=== PATIENT | female | born 1975 | race Caucasian/White ===

== ENCOUNTER 2016-04-29 08:10 | Day surgery (SDC) | payer OTHER ==
[~2016-04-29] VITALS: Ht 160 cm; Wt 99.5 kg
[2016-04-29 09:33] VITALS: Ht 160 cm; Wt 99.5 kg
[2016-04-29] MEDS ORDERED: INSULIN GLARGINE [LANtus] 3 ML PEN SC STA (10:02)
[2016-04-29 10:06] VITALS: BP 119/73; PULSE 97; RESP 20
[2016-04-29] MEDS ORDERED: LANT3I SC (10:11)
[2016-04-29] MEDS ORDERED: DEPRESSION (10:11)
[2016-04-29] MEDS ORDERED: INSU100V3 IJ (10:11)
[2016-04-29 10:26] LABS: POTASSIUM 4.3 mmol/L (3.5-5.1)
[2016-04-29 10:29] LABS: CREATININE 0.52 mg/dl (0.44-1.00)
[2016-04-29 10:30] LABS: CALCIUM 9.3 mg/dl (8.4-10.2)
--- NOTE | 2016-04-29 11:03 | EN ---
Date/Time of Note Date/Time of Note DATE: 04/29/16 TIME: 10:54 Event Note Anesthesiology Anesthesiology Event Note 41 yo F IDDM, morbidly obese presents for EGD for abdominal pain. FS Glc 450-> 420, confirmed Glucose 430 on chem 8, showing slightly high AG. Pt states she has not taken her lantus in several days and forgot. She denies n/v, thirst, increased urine production, abdominal pain, confusion. Her VS shows normotension , without tachycardia, no tenderness of abdomen on palpation. Patient was given 55U Lantus SC, her usual am dose. And decision was made to cancel case and come back for procedure once glucose normalizes and patient remains on her insulin regimen. Patient instructed to follow up with PMD for better follow-up of DM care and titration of insulin, given h/o hypoglycemia to 30s several years ago. Baseline range per pt is 100-200. Patient instructed to call 911 and go to ED should any of the symptoms for DKA develops. Advised patient that she should still go home with a learning support specialist, so that they may watch and care for her should she have a medical emergency. Patient refused to have niece come to pick her up and wants to go home on a bus. Informed and discussed at length and patient chose to sign AMA form. I suspect 100-200 is not her baseline, especially if she's noncompliant with her insulin and shows poor understanding of end organ damage from IDDM. MERARI GAMING MD Apr 29, 2016 11:03
[2016-04-29] MEDS ORDERED: GLUCOSE GEL 15 GRAM TUBE BUCCAL PRN (11:30)
[2016-04-29] MEDS ORDERED: GLUCOSE GEL 15 GRAM TUBE PO PRN ×2 (11:30)
[2016-04-29] MEDS ORDERED: GLUCAGON 1 MG INJ IM PRN (11:30)
[2016-04-29] MEDS ORDERED: DEXTROSE 50% 50 ML SYRINGE IV PRN ×2 (11:30)
== END 2016-04-30 08:30 | disposition home or self-care (01) ==
LOC: GIL 08:10
PROVIDERS: ATTEND Internal Medicine Gastroenterology
DX: R63.4 Abnormal weight loss (principal); Z53.9 Procedure and treatment not carried out, unspecified reason; E11.9 Type 2 diabetes mellitus without complications; F32.9 Major depressive disorder, single episode, unspecified
CPT/HCPCS: 80048; 82962; J1815

== ENCOUNTER 2016-06-03 06:42 | Day surgery (SDC) | payer OTHER ==
[~2016-06-03] VITALS: Ht 160 cm; Wt 107.0 kg
[~2016-06-03 06:42] MED LIST: DEPRESSION; INSU100V3 IJ; LANT3I SC
[2016-06-03 08:32] VITALS: Ht 160 cm; Wt 107.0 kg
[2016-06-03] MEDS ORDERED: MTF1000T PO (08:39)
[2016-06-03] MEDS ORDERED: FENTAnyl 50 MCG/ML VIAL ONE (08:51)
[2016-06-03] MEDS ORDERED: PROPOFOL 20 ML ONE (08:51)
[2016-06-03 10:10] VITALS: BP 150/89; PULSE 99; RESP 18
--- NOTE | 2016-06-03 11:20 | GILP ---
DATE OF PROCEDURE: PROCEDURE: Esophagogastroduodenoscopy with biopsy. INDICATION: A 41-year-old female undergoing this procedure for persistent epigastric pain and heart burn. The risk of the procedure, related and unrelated complications, anesthetic risks, alternative s discussed. Informed consent was obtained. DESCRIPTION OF PROCEDURE: The patient was brought to the GI lab, sedated by the anesthesiologist. After optimum sedation, scope was passed with much ease into esophagus. She had a 2 linear esophageal ulceration, biopsied one of them while coming out. Z line was at 35 c m. A 3 to 4 cm hiatal hernia. Stomach mucosa revealed gastritis. Random 4 biopsies obtained. Duo denum, first and second part including ampulla appeared normal. Retroversion done, no growth was se en. Scope was straightened out and removed with good patient tolerance. IMPRESSION 1. Two esophageal ulcerations, linear. Each one is about 1 cm in length. 2. A 3 to 4 cm hiatal hernia. 3. Gastritis. 4. Normal duodenum and ampulla. PLAN: Review histopathology, will get an MRCP done. The patient needs to followup in the office in 3 to 4 weeks. Dictated By: MISTY URIBE/ABNER Conf#: [id number] DID#: [id number]
== END 2016-06-03 11:00 | disposition home or self-care (01) ==
LOC: GIL 06:42
PROVIDERS: ATTEND Internal Medicine Gastroenterology
DX: K29.30 Chronic superficial gastritis without bleeding (principal); K21.0 Gastro-esophageal reflux disease with esophagitis; K44.9 Diaphragmatic hernia without obstruction or gangrene; K22.10 Ulcer of esophagus without bleeding; E11.9 Type 2 diabetes mellitus without complications; E66.9 Obesity, unspecified; Z68.41 Body mass index [BMI] 40.0-44.9, adult
CPT/HCPCS: 43239; 82962; 84703; 88305; 88312; 88313; J3010; Z7610

== ENCOUNTER 2017-01-17 18:01 | Inpatient (IN) | payer OTHER ==
[~2017-01-17] VITALS: Ht 162.6 cm; Wt 101.0 kg
[~2017-01-17 18:01] MED LIST changes: -DEPRESSION; +MTF1000T PO
[2017-01-17 18:35] VITALS: PULSE 112
[2017-01-17 20:00] VITALS: Ht 162.6 cm; Wt 101.0 kg
[2017-01-17 20:03] VITALS: BP 135/75; RESP 19
[2017-01-17 20:20] VITALS: PULSE 119
[2017-01-17] MEDS ORDERED: LORAZEPAM 2 MG INJ IM PRN (22:00)
[2017-01-17] MEDS ORDERED: ALBUTEROL/IPRATROPIUM (NEB) 3 ML AMP HHN PRN (22:00)
[2017-01-17] MEDS ORDERED: DEXTROSE 50% 50 ML SYRINGE IV PRN ×2 (23:15)
[2017-01-17] MEDS ORDERED: GLUCOSE GEL 15 GRAM TUBE BUCCAL PRN (23:15)
[2017-01-17] MEDS ORDERED: GLUCOSE GEL 15 GRAM TUBE PO PRN ×2 (23:15)
[2017-01-17] MEDS ORDERED: GLUCAGON 1 MG INJ IM PRN (23:15)
[2017-01-17 23:51] VITALS: BP 102/62; RESP 18
[2017-01-18] VITALS (10 sets, daily range): BP systolic 100–115; BP diastolic 52–60; PULSE 87–115; RESP 18–19
[2017-01-18] MEDS ORDERED: ACCU-CHEK XX SCH (02:00)
[2017-01-18] MEDS: ACCU-CHEK XX SCH (02:00)
[2017-01-18] MEDS: LORAZEPAM 2 MG INJ IV PRN (04:19)
[2017-01-18] MEDS: INSULIN ASPART [NOVOLOG] 3 ML PEN SC SCH ×4 (08:00→21:00)
[2017-01-18] MEDS: PAROXETINE 10 MG TAB PO SCH (08:34)
[2017-01-18 09:06] LABS: BASOPHILS % 0.3 % (0.0-2.0); HEMATOCRIT 30.6 % (37.0-47.0); HEMOGLOBIN 9.1 g/dl (12.0-16.0); LYMPHOCYTES # 2.2 10^3/ul (0.8-2.9); LYMPHOCYTES % 19.4 % (15.0-51.0); MEAN CORPUSCULAR HEMOGLOBIN 22.6 pg (29.0-33.0); MEAN CORPUSCULAR HGB CONC 29.7 g/dl (32.0-37.0); MEAN CORPUSCULAR VOLUME 76.1 fl (82.0-101.0); MEAN PLATELET VOLUME 10.3 fl (7.4-10.4); MONOCYTES % 9.1 % (0.0-11.0); NEUTROPHIL # 7.9 10^3/ul (1.6-7.5); PLATELET COUNT 223 10^3/UL (140-415); RED BLOOD COUNT 4.02 10^6/ul (4.20-5.40); RED CELL DISTRIBUTION WIDTH 17.8 % (11.5-14.5); WHITE BLOOD COUNT 11.5 10^3/ul (4.8-10.8)
[2017-01-18 09:21] LABS: CREATININE 4.5 mg/dl (0.44-1.00); POTASSIUM 3.9 mmol/L (3.5-5.1)
[2017-01-18] MEDS ORDERED: DEXTROSE 5%-0.45% NACL 1,000 ML IV SCH (10:00)
--- NOTE | 2017-01-18 13:37 | QN ---
Documentation Comment [id number] KATHY MARTINEZ MD Jan 18, 2017 13:37
[2017-01-18 13:51] LABS: HAAIG REFLEX REFLEX FILED
[2017-01-18 14:47] LABS: HEPATITIS B CORE ANTIBODY NEGATIVE (NEGATIVE)
[2017-01-18] MEDS: CEFTRIAXONE 1 GM/50 ML (PMX) 50 ML IVPB SCH (15:08)
[2017-01-18] MEDS ORDERED: INSULIN GLARGINE [LANtus] 3 ML PEN SC SCH (21:00)
[2017-01-19] VITALS (15 sets, daily range): BP systolic 99–149; BP diastolic 52–86; PULSE 80–113; RESP 17–19
[2017-01-19] MEDS: ACCU-CHEK XX SCH (02:18)
[2017-01-19] MEDS: LORAZEPAM 2 MG INJ IV PRN ×3 (02:51→15:50)
[2017-01-19] MEDS: PANTOPRAZOLE (EC) 40 MG TAB PO SCH (06:06)
[2017-01-19] MEDS ORDERED: ALTEPLASE (CATHFLO) 2 MG INJ CATHETER ONE (07:00)
--- NOTE | 2017-01-19 07:32 | HP ---
DATE OF ADMISSION: 01/17/2017 HISTORY OF PRESENT ILLNESS: Charmaine Rm is a 41-year-old female who was admitted to another hospital with diagnosis of diabetic ketoacidosis, , UTI, dehydration. The patient also developed acute kidney injury, started on hemodialysis. The patient was intubated and successfully extubated and transferred to [facility] for further management. The patient has underlying psychiatric disorder also. The patient has a history of hypertension. The patient was seen by endocrinology for diabetes mellitus. The patient was also diagnosed to have end-stage renal disease. Will continue hemodialysis. EKG done shows the patient has sinus tachycardia. The patient's creatinine 3.3 and sodium 141, potassium 4.6 on 01/14/2017, patient's pCO2 of 37 , pO2 of 77 on 01/14/2017. The patient has NG tube for feeding. Pulled on NG tube 2 times. CPK recorded as 216, triglyceride 509, alkaline phosphatase 386. Urine was positive for protein, 2+. The patient and family is at bedside who provided some history. The patient herself is unable to give any detailed history. PAST MEDICAL HISTORY: Positive for depression, psychiatric disorder, hypertension, diabetes mellitus, noncompliance. ALLERGY HISTORY: NEGATIVE. FAMILY HISTORY: Diabetes mellitus, hypertension. SOCIAL HISTORY: Negative. MEDICATION HISTORY: The patient does not know the name of the medicine she takes at home. CURRENT MEDICATIONS: The patient is on: 1. D5 half. 2. The patient has Accu-Chek. 3. Baclofen t.i.d. p.r.n. 4. Insulin, Lantus 60 units at bedtime. 5. Lorazepam. 6. Paxil. 7. Tramadol. REVIEW OF SYSTEMS HEENT: Anxiety. RESPIRATORY: Unremarkable. CARDIOVASCULAR: Unremarkable. ABDOMEN: No dyspepsia. EXTREMITIES: Denies any swelling. Patient has a groin catheter. PHYSICAL EXAMINATION: GENERAL: Obese, overweight female, awake, alert. VITAL SIGNS: Pulse 98, blood pressure 101/57. HEAD: Atraumatic, normocephalic. Pupils equal, reactive to light. NECK: Supple. There is no JVD. LUNGS: Clear. CARDIOVASCULAR: S1, S2 are normal. ABDOMEN: Soft, obese, bowel sounds present, no palpable mass or hepatosplenomegaly. No guarding, rebound tenderness. EXTREMITIES: There is no cyanosis, clubbing, or edema. CENTRAL NERVOUS SYSTEM: The patient is awake, alert with no focal deficit. LABORATORY DATA: Sodium 140, potassium 3.9, BUN 58, creatinine 4.50. 27.5, hematocrit 30.6, platelet count 223. IMPRESSION: 1. The patient is status post diabetic ketoacidosis, diabetes mellitus, hypertension, pneumonia, status post respiratory failure. The patient has ESRD , as per current chart. The patient has obesity, dyslipidemia, noncompliance, anxiety and depression. PLAN: Plan is to continue his current medication. The patient will have a swallow test. If she passes, she will be fed. The patient will also have laboratory data followed. Hemodialysis was ordered and antibiotics will be considered. Orders were done. Dictated By: KATHY UMANA/ABNER Conf#: [id number] DID#: [id number] MTDD
[2017-01-19 07:36] LABS: BASOPHILS % 0.5 % (0.0-2.0); HEMATOCRIT 26.5 % (37.0-47.0); HEMOGLOBIN 8.1 g/dl (12.0-16.0); LYMPHOCYTES # 1.3 10^3/ul (0.8-2.9); LYMPHOCYTES % 14.7 % (15.0-51.0); MEAN CORPUSCULAR HEMOGLOBIN 22.9 pg (29.0-33.0); MEAN CORPUSCULAR HGB CONC 30.6 g/dl (32.0-37.0); MEAN CORPUSCULAR VOLUME 74.9 fl (82.0-101.0); MEAN PLATELET VOLUME 10.1 fl (7.4-10.4); MONOCYTE # 0.7 10^3/ul (0.3-0.9); NEUTROPHIL # 6.7 10^3/ul (1.6-7.5); NEUTROPHILS % 75.4 % (39.0-77.0); PLATELET COUNT 209 10^3/UL (140-415); RED BLOOD COUNT 3.54 10^6/ul (4.20-5.40); RED CELL DISTRIBUTION WIDTH 17.1 % (11.5-14.5); WHITE BLOOD COUNT 8.9 10^3/ul (4.8-10.8)
[2017-01-19 07:51] LABS: ALBUMIN 3.5 g/dl (3.3-4.9); BILIRUBIN,INDIRECT 0.1 mg/dl (0-1.1); BILIRUBIN,TOTAL 0.1 mg/dl (0.2-1.3); CALCIUM 8.4 mg/dl (8.4-10.2); CREATININE 4.17 mg/dl (0.44-1.00); POTASSIUM 3.3 mmol/L (3.5-5.1)
[2017-01-19] MEDS: INSULIN ASPART [NOVOLOG] 3 ML PEN SC SCH ×4 (08:00→21:00)
[2017-01-19] MEDS: POLYETHYLENE GLYCOL 3350 119 GM POWDER PO SCH (08:23)
[2017-01-19] MEDS: PAROXETINE 10 MG TAB PO SCH (08:24)
[2017-01-19] MEDS: LUBIPROSTONE 24 MCG CAP PO SCH ×2 (08:24→21:00)
--- NOTE | 2017-01-19 08:36 | RADRPT ---
PROCEDURE: XR Chest. CLINICAL INDICATION: Shortness of breath. TECHNIQUE: Single frontal view. COMPARISON: None. FINDINGS: There is a left subclavian vein catheter with the tip in the superior vena cava. There is mild atele ctasis at the lung bases. The lungs are otherwise clear. The heart size is normal. There is no right pleural effusion. There is a probable small left pleural effusion. There is no pneumothorax. IMPRESSION: 1. Left subclavian vein catheter tip in the superior vena cava. 2. Mild atelectasis at the lung bases. 3. Probable small left pleural effusion. 4. Otherwise unremarkable chest radiograph. RPTAT: QQ .Joel Hutchison MD, MD Date Time Electronically viewed and signed by .Joel Hutchison MD, on 01/19/2017 08:36 .R/
[2017-01-19] MEDS ORDERED: QUETIAPINE 25 MG TAB PO ONE (12:00)
[2017-01-19 12:07] LABS: HAAIG REFLEX REFLEX FILED
[2017-01-19] MEDS: DEXTROSE 5%-0.45% NACL 1,000 ML IV SCH (12:19)
[2017-01-19 13:18] LABS: HEPATITIS B CORE ANTIBODY NEGATIVE (NEGATIVE)
[2017-01-19] MEDS: CEFTRIAXONE 1 GM/50 ML (PMX) 50 ML IVPB SCH (14:30)
[2017-01-19] MEDS: QUETIAPINE 25 MG TAB PO SCH (21:00)
[2017-01-19] MEDS ORDERED: INSULIN GLARGINE [LANtus] 3 ML PEN SC SCH (21:00)
--- NOTE | 2017-01-19 23:01 | PN ---
Date/Time of Note Date/Time of Note DATE: 01/19/17 TIME: 23:00 Assessment/Plan VTE Prophylaxis VTE Prophylaxis Intervention: other Lines/Catheters IV Catheter Type (from Nrs): boston w pigtail Urinary Cath still in place: Yes Reason Cath still needed: other (indicate) Assessment/Plan Chief Complaint/Hosp Course 1. The patient is status post diabetic ketoacidosis, diabetes mellitus, hypertension, pneumonia, status post respiratory failure. The patient has ESRD , as per current chart. The patient has obesity, dyslipidemia, noncompliance, anxiety and depression. plan hd psychic perma cath Problems: Subjective 24 Hr Interval Summary Subjective hx not possible: other (agitated ) Exam/Review of Systems Vital Signs Vitals Vital Signs Date Time Temp Pulse Resp B/P Pulse Ox O2 Delivery O2 Flow Rate FiO2 01/19/17 20:00 101 01/19/17 16:11 98.6 18 122/71 95 01/19/17 07:50 Nasal Cannula 2.0 01/18/17 04:33 30 Intake and Output 01/18/17 01/18/17 01/19/17 15:00 23:00 07:00 Intake Total 470 ml Output Total 500 ml Balance -30 ml Exam Neck: supple Respiratory: clear to auscultation Cardiovascular: regular rate and rhythm Gastrointestinal: bowel sounds, soft Extremities: normal pulses Results Result Diagram: 01/19/17 0629 01/19/17 0629 Results 24 hrs Laboratory Tests Test 01/19/17 02:07 01/19/17 02:34 01/19/17 02:49 01/19/17 03:47 Bedside Glucose 68 L 84 81 98 Test 01/19/17 06:28 01/19/17 06:29 01/19/17 08:01 01/19/17 08:19 Hemoglobin A1c 12.5 H Hepatitis B Surface Antigen NEGATIVE Hepatitis B Core Total Antibody NEGATIVE Hepatitis C Antibody NEGATIVE White Blood Count 8.9 # Red Blood Count 3.54 L Hemoglobin 8.1 L Hematocrit 26.5 L Mean Corpuscular Volume 74.9 L Mean Corpuscular Hemoglobin 22.9 L Mean Corpuscular Hemoglobin Concent 30.6 L Red Cell Distribution Width 17.1 H Platelet Count 209 Mean Platelet Volume 10.1 Neutrophils % 75.4 Lymphocytes % 14.7 L Monocytes % 8.0 Eosinophils % 0.0 Basophils % 0.5 Nucleated Red Blood Cells % 0.0 Neutrophils # 6.7 Lymphocytes # 1.3 Monocytes # 0.7 Eosinophils # 0.0 Basophils # 0.0 Nucleated Red Blood Cells # 0.0 Sodium Level 135 Potassium Level 3.3 L Chloride Level 97 Carbon Dioxide Level 19 L Anion Gap 22 H Blood Urea Nitrogen 59 H Creatinine 4.17 H Glucose Level 71 Calcium Level 8.4 Total Bilirubin 0.1 L Direct Bilirubin 0.00 Indirect Bilirubin 0.1 Aspartate Amino Transf (AST/SGOT) 27 Alanine Aminotransferase (ALT/SGPT) 42 Alkaline Phosphatase 239 H Total Protein 7.0 Albumin 3.5 Globulin 3.50 H Albumin/Globulin Ratio 1.00 Bedside Glucose 68 L 121 Test 01/19/17 08:32 01/19/17 11:46 01/19/17 17:04 Bedside Glucose 121 122 101 Medications Medications Current Medications Acetaminophen (Tylenol Tab) 650 mg Q6H PRN PO PAIN AND OR ELEVATED TEMP; Start 01/17/17 at 22:00 Diagnostic Test (Pha) (Accu-Chek) 1 ea 02 XX Last administered on 01/19/17 02: 18; Admin Dose 1 EA; Start 01/18/17 at 02:00 Baclofen (Lioresal) 10 mg TID PRN PO muscle pain; Start 01/17/17 at 22:30 Tramadol HCl (Ultram) 50 mg TID PRN PO PAIN; Start 01/17/17 at 22:30 Paroxetine HCl (Paxil) 30 mg DAILY PO Last administered on 01/19/17 08:24; Admin Dose 30 MG; Start 01/18/17 at 09:00 Miscellaneous Information 1 ea NOTE XX ; Start 01/17/17 at 23:15 Glucose (Glutose) 15 gm Q15M PRN PO DECREASED GLUCOSE; Start 01/17/17 at 23:15 Glucose (Glutose) 22.5 gm Q15M PRN PO DECREASED GLUCOSE; Start 01/17/17 at 23: 15 Dextrose (D50w Syringe) 25 ml Q15M PRN IV DECREASED GLUCOSE; Start 01/17/17 at 23:15 Dextrose (D50w Syringe) 50 ml Q15M PRN IV DECREASED GLUCOSE; Start 01/17/17 at 23:15 Glucagon (Glucagen) 1 mg Q15M PRN IM DECREASED GLUCOSE; Start 01/17/17 at 23:15 Glucose (Glutose) 15 gm Q15M PRN BUCCAL DECREASED GLUCOSE; Start 01/17/17 at 23 :15 Lorazepam 1 mg 1 mg Q6H PRN IV ANXIETY Last administered on 01/19/17 02:51; Admin Dose 1 MG; Start 01/18/17 at 04:16 Ceftriaxone Sodium (Rocephin) 50 ml @ 100 mls/hr Q24H IVPB Last administered on 01/19/17 14:30; Admin Dose 100 MLS/HR; Start 01/18/17 at 15:00 Pantoprazole (Protonix Tab) 40 mg DAILY@06 PO Last administered on 01/19/17 06 :06; Admin Dose 40 MG; Start 01/19/17 at 06:00 Lorazepam (Ativan) 1 mg Q4 PRN IV ANXIETY Last administered on 01/19/17 15:50 ; Admin Dose 1 MG; Start 01/19/17 at 03:30 Insulin Glargine (Lantus) 55 unit HS SC ; Start 01/19/17 at 21:00 Polyethylene Glycol (Miralax) 119 gm DAILY PO Last administered on 01/19/17 08 :23; Admin Dose 119 GM; Start 01/19/17 at 09:00 Lubiprostone (Amitiza) 24 mcg BID PO Last administered on 01/19/17 21:00; Admin Dose 24 MCG; Start 01/19/17 at 09:00 Quetiapine Fumarate 50 mg 50 mg HS PO Last administered on 01/19/17 21:00; Admin Dose 50 MG; Start 01/19/17 at 21:00 Dextrose/Sodium Chloride (D5-1/2ns) 1,000 ml @ 50 mls/hr Q20H IV Last administered on 01/19/17 12:19; Admin Dose 50 MLS/HR; Start 01/19/17 at 12:00 KATHY MARTINEZ MD Jan 19, 2017 23:01
[2017-01-19] MEDS: INSULIN GLARGINE [LANtus] 3 ML PEN SC SCH (23:47)
[2017-01-20] VITALS (12 sets, daily range): BP systolic 99–145; BP diastolic 52–80; PULSE 78–112; RESP 18–20
[2017-01-20] MEDS: LORAZEPAM 2 MG INJ IV PRN ×3 (00:21→23:35)
[2017-01-20] MEDS: ACCU-CHEK XX SCH (02:00)
[2017-01-20] MEDS: PANTOPRAZOLE (EC) 40 MG TAB PO SCH (06:29)
[2017-01-20] MEDS: INSULIN ASPART [NOVOLOG] 3 ML PEN SC SCH ×4 (08:00→21:00)
[2017-01-20] MEDS: DEXTROSE 5%-0.45% NACL 1,000 ML IV SCH (08:03)
[2017-01-20] MEDS: POLYETHYLENE GLYCOL 3350 119 GM POWDER PO SCH (09:00)
[2017-01-20] MEDS: LUBIPROSTONE 24 MCG CAP PO SCH ×2 (09:42→21:16)
[2017-01-20] MEDS: PAROXETINE 10 MG TAB PO SCH (09:42)
[2017-01-20 10:09] LABS: INR 1.04; PROTIME 13.6 Sec (12.2-14.2); PT RATIO 1.1
--- NOTE | 2017-01-20 15:13 | PSY ---
Date/Time of Note Date/Time of Note DATE: 01/20/17 TIME: 15:06 Psychiatric Subjective Eval Consent Pt consented to telemedicine: Yes Subjective Evaluation Patient location: inpatient Reason for consult: confusion History of present illness Pt was d/w Dr Billy yesterday, but was too sedated to be evaluated. Pt was seen today. She is confused, tangential. She staed, after being promted by RN, the year, but was not able to provide much of the information or history. She told me though she never been treated in the inpt psych. She told me she hears voices. Overall, she did not make much sense. Past psychiatric history hx derpession Family History unknown Medical history reviewed Allergies: Coded Allergies: No Known Allergy (Unverified , 04/29/16) Substance Abuse Substance use: No known substance abuse Social History Marital status: DPA/Conservatorship: No Psychiatric Objective Eval Mental Status Examination: Appearance: Disheveled Eye Contact: Poor Psychomotor Activity: Other Behavior: Other Speech: Slurred AFFECT: Constricted Mood: Other Though Process: Other Thought Content: Hallucinations Suicidal: No Homicidal: No Orientation: x2 Cognition: Drowsy, Obtunded Insight: Impared Judgement: Impared Attention Span: Distractible Laboratory Results Laboratory Tests Test 01/18/17 16:55 01/18/17 21:32 01/19/17 02:07 01/19/17 02:34 Bedside Glucose 104mg/dL 102mg/dL 68mg/dL 84mg/dL Test 01/19/17 02:49 01/19/17 03:47 01/19/17 06:28 01/19/17 06:29 Bedside Glucose 81mg/dL 98mg/dL Hemoglobin A1c 12.5% Hepatitis B Surface Antigen NEGATIVE Hepatitis B Core Total Antibody NEGATIVE Hepatitis C Antibody NEGATIVE White Blood Count 8.910^3/ul Red Blood Count 3.5410^6/ul Hemoglobin 8.1g/dl Hematocrit 26.5% Mean Corpuscular Volume 74.9fl Mean Corpuscular Hemoglobin 22.9pg Mean Corpuscular Hemoglobin Concent 30.6g/dl Red Cell Distribution Width 17.1% Platelet Count 62171^3/UL Mean Platelet Volume 10.1fl Neutrophils % 75.4% Lymphocytes % 14.7% Monocytes % 8.0% Eosinophils % 0.0% Basophils % 0.5% Nucleated Red Blood Cells % 0.0/100WBC Neutrophils # 6.710^3/ul Lymphocytes # 1.310^3/ul Monocytes # 0.710^3/ul Eosinophils # 0.010^3/ul Basophils # 0.010^3/ul Nucleated Red Blood Cells # 0.010^3/ul Sodium Level 135mmol/L Potassium Level 3.3mmol/L Chloride Level 97mmol/L Carbon Dioxide Level 19mmol/L Anion Gap 22 Blood Urea Nitrogen 59mg/dl Creatinine 4.17mg/dl Glucose Level 71mg/dl Calcium Level 8.4mg/dl Total Bilirubin 0.1mg/dl Direct Bilirubin 0.00mg/dl Indirect Bilirubin 0.1mg/dl Aspartate Amino Transf (AST/SGOT) 27IU/L Alanine Aminotransferase (ALT/SGPT) 42IU/L Alkaline Phosphatase 239IU/L Total Protein 7.0g/dl Albumin 3.5g/dl Globulin 3.50g/dl Albumin/Globulin Ratio 1.00 Test 01/19/17 08:01 01/19/17 08:19 01/19/17 08:32 01/19/17 11:46 Bedside Glucose 68mg/dL 121mg/dL 121mg/dL 122mg/dL Test 01/19/17 17:04 01/19/17 21:32 01/20/17 07:47 01/20/17 08:01 Bedside Glucose 101mg/dL 109mg/dL 45mg/dL Glucose Level 132mg/dl Test 01/20/17 08:10 01/20/17 08:31 01/20/17 08:32 01/20/17 12:01 Bedside Glucose 92mg/dL 99mg/dL 48mg/dL Prothrombin Time 13.6Sec Prothrombin Time Ratio 1.1 INR International Normalized Ratio 1.04 Activated Partial Thromboplast Time 31.3Sec Test 01/20/17 12:04 01/20/17 12:32 01/20/17 12:52 01/20/17 12:56 Bedside Glucose 46mg/dL 192mg/dL 177mg/dL Glucose Level 146mg/dl Assessment and Plan Assessment/Diagnosis [place] I: Delirium. Depressive disorder by history. [place] II: defereed [place] III: as per record, reviwed [place] IV: moderate [place] V: gaf 25 Recommendation/Plan Medication Management Please complete home meds reconciliation - there is a mentioning on the record, the pt was on Seroquel; please resueme. Consider Haldol 1 mg IM/IV prn q 8 hrs agitation. Avoid benzodiazepines if possible. Per PDMP [place] there is no record of pt being on benzos. Psychotherapy n/a Pt. Caregiver/Family Education please if possible obtain pt's med list form the family and resume Follow-up/Disposition pt can be re-evaluated then she will be medically c;eared for discharge BUFFY BAEZA MD Jan 20, 2017 15:13
[2017-01-20] MEDS: CEFTRIAXONE 1 GM/50 ML (PMX) 50 ML IVPB SCH (15:19)
[2017-01-20] MEDS: traMADol 50 MG TAB PO PRN (15:26)
[2017-01-20] MEDS: INSULIN GLARGINE [LANtus] 3 ML PEN SC SCH (21:00)
[2017-01-20] MEDS: QUETIAPINE 25 MG TAB PO SCH (21:16)
--- NOTE | 2017-01-20 22:04 | PN ---
Date/Time of Note Date/Time of Note DATE: 01/20/17 TIME: 22:03 Assessment/Plan VTE Prophylaxis VTE Prophylaxis Intervention: other Lines/Catheters IV Catheter Type (from Nrs): boston arroyo pigtail Urinary Cath still in place: Yes Reason Cath still needed: other (indicate) Assessment/Plan Chief Complaint/Hosp Course 1. The patient is status post diabetic ketoacidosis, diabetes mellitus, hypertension, pneumonia, status post respiratory failure. The patient has ESRD , as per current chart. The patient has obesity, dyslipidemia, noncompliance, anxiety and depression.confusion plan hd per psychiatry perma cath Problems: Subjective 24 Hr Interval Summary Respiratory: No shortness of breath Cardiovascular: no complaints Neurologic: confusion, No seizure Exam/Review of Systems Vital Signs Vitals Vital Signs Date Time Temp Pulse Resp B/P Pulse Ox O2 Delivery O2 Flow Rate FiO2 01/20/17 20:30 81 01/20/17 19:36 98.5 20 99/52 100 01/20/17 08:00 Nasal Cannula 2.0 01/18/17 04:33 30 Intake and Output 01/19/17 01/19/17 01/20/17 15:00 23:00 07:00 Intake Total 400 ml 500 ml Output Total 1100 ml 500 ml Balance -700 ml 0 ml Exam Respiratory: clear to auscultation Cardiovascular: regular rate and rhythm Gastrointestinal: soft Musculoskeletal: nl extremities to inspection Extremities: normal pulses Neurological: confused Results Result Diagram: 01/19/17 0629 01/20/17 1256 Results 24 hrs Laboratory Tests Test 01/20/17 07:47 01/20/17 08:01 01/20/17 08:10 01/20/17 08:31 Bedside Glucose 45 *L 92 99 Glucose Level 132 # Test 01/20/17 08:32 01/20/17 12:01 01/20/17 12:04 01/20/17 12:32 Prothrombin Time 13.6 Prothrombin Time Ratio 1.1 INR International Normalized Ratio 1.04 Activated Partial Thromboplast Time 31.3 Bedside Glucose 48 *L 46 *L 192 Test 01/20/17 12:52 01/20/17 12:56 01/20/17 17:05 01/20/17 21:15 Bedside Glucose 177 87 97 Glucose Level 146 Medications Medications Current Medications Acetaminophen (Tylenol Tab) 650 mg Q6H PRN PO PAIN AND OR ELEVATED TEMP; Start 01/17/17 at 22:00 Diagnostic Test (Pha) (Accu-Chek) 1 ea 02 XX Last administered on 01/19/17 02: 18; Admin Dose 1 EA; Start 01/18/17 at 02:00 Baclofen (Lioresal) 10 mg TID PRN PO muscle pain; Start 01/17/17 at 22:30 Tramadol HCl (Ultram) 50 mg TID PRN PO PAIN Last administered on 01/20/17 15: 26; Admin Dose 50 MG; Start 01/17/17 at 22:30 Paroxetine HCl (Paxil) 30 mg DAILY PO Last administered on 01/20/17 09:42; Admin Dose 30 MG; Start 01/18/17 at 09:00 Miscellaneous Information 1 ea NOTE XX ; Start 01/17/17 at 23:15 Glucose (Glutose) 15 gm Q15M PRN PO DECREASED GLUCOSE; Start 01/17/17 at 23:15 Glucose (Glutose) 22.5 gm Q15M PRN PO DECREASED GLUCOSE; Start 01/17/17 at 23: 15 Dextrose (D50w Syringe) 25 ml Q15M PRN IV DECREASED GLUCOSE Last administered on 01/20/17 07:54; Admin Dose 25 ML; Start 01/17/17 at 23:15 Dextrose (D50w Syringe) 50 ml Q15M PRN IV DECREASED GLUCOSE Last administered on 01/20/17 12:10; Admin Dose 50 ML; Start 01/17/17 at 23:15 Glucagon (Glucagen) 1 mg Q15M PRN IM DECREASED GLUCOSE; Start 01/17/17 at 23:15 Glucose (Glutose) 15 gm Q15M PRN BUCCAL DECREASED GLUCOSE; Start 01/17/17 at 23 :15 Lorazepam 1 mg 1 mg Q6H PRN IV ANXIETY Last administered on 01/20/17 15:26; Admin Dose 1 MG; Start 01/18/17 at 04:16 Ceftriaxone Sodium (Rocephin) 50 ml @ 100 mls/hr Q24H IVPB Last administered on 01/20/17 15:19; Admin Dose 100 MLS/HR; Start 01/18/17 at 15:00 Pantoprazole (Protonix Tab) 40 mg DAILY@06 PO Last administered on 01/20/17 06 :29; Admin Dose 40 MG; Start 01/19/17 at 06:00 Lorazepam (Ativan) 1 mg Q4 PRN IV ANXIETY Last administered on 01/19/17 15:50 ; Admin Dose 1 MG; Start 01/19/17 at 03:30 Polyethylene Glycol (Miralax) 119 gm DAILY PO Last administered on 01/19/17 08 :23; Admin Dose 119 GM; Start 01/19/17 at 09:00 Lubiprostone (Amitiza) 24 mcg BID PO Last administered on 01/20/17 21:16; Admin Dose 24 MCG; Start 01/19/17 at 09:00 Quetiapine Fumarate 50 mg 50 mg HS PO Last administered on 01/20/17 21:16; Admin Dose 50 MG; Start 01/19/17 at 21:00 Dextrose/Sodium Chloride (D5-1/2ns) 1,000 ml @ 50 mls/hr Q20H IV Last administered on 01/20/17 08:03; Admin Dose 50 MLS/HR; Start 01/19/17 at 12:00 Insulin Glargine (Lantus) 35 unit HS SC ; Start 01/19/17 at 23:47 KATHY MARTINEZ MD Jan 20, 2017 22:04
[2017-01-21] VITALS (23 sets, daily range): BP systolic 104–149; BP diastolic 54–81; PULSE 72–110; RESP 16–22
[2017-01-21] MEDS: ACCU-CHEK XX SCH (02:00)
[2017-01-21] MEDS: DEXTROSE 5%-0.45% NACL 1,000 ML IV SCH (04:58)
[2017-01-21] MEDS: PANTOPRAZOLE (EC) 40 MG TAB PO SCH (06:26)
[2017-01-21] MEDS: INSULIN ASPART [NOVOLOG] 3 ML PEN SC SCH ×4 (07:44→20:51)
[2017-01-21 08:21] LABS: BASOPHILS % 0.4 % (0.0-2.0); HEMOGLOBIN 7.6 g/dl (12.0-16.0); LYMPHOCYTES # 1.1 10^3/ul (0.8-2.9); LYMPHOCYTES % 24.6 % (15.0-51.0); MEAN CORPUSCULAR HEMOGLOBIN 22.8 pg (29.0-33.0); MEAN CORPUSCULAR HGB CONC 30.4 g/dl (32.0-37.0); MEAN CORPUSCULAR VOLUME 75.1 fl (82.0-101.0); MEAN PLATELET VOLUME 9.6 fl (7.4-10.4); MONOCYTE # 0.5 10^3/ul (0.3-0.9); MONOCYTES % 10.5 % (0.0-11.0); NEUTROPHIL # 2.9 10^3/ul (1.6-7.5); NEUTROPHILS % 63.2 % (39.0-77.0); PLATELET COUNT 217 10^3/UL (140-415); RED BLOOD COUNT 3.33 10^6/ul (4.20-5.40); WHITE BLOOD COUNT 4.6 10^3/ul (4.8-10.8)
[2017-01-21 08:52] LABS: ALBUMIN/GLOBULIN RATIO 0.81; CALCIUM 8.6 mg/dl (8.4-10.2); CREATININE 2.36 mg/dl (0.44-1.00); TOTAL PROTEIN 6.7 g/dl (6.1-8.1)
[2017-01-21 08:55] LABS: POTASSIUM 2.9 mmol/L (3.5-5.1)
[2017-01-21] MEDS: POLYETHYLENE GLYCOL 3350 119 GM POWDER PO SCH (09:00)
[2017-01-21] MEDS ORDERED: POTASSIUM CHLORIDE 20 MEQ in DEXTROSE 5% 100 ML IVPB SCH (09:30)
[2017-01-21] MEDS: LUBIPROSTONE 24 MCG CAP PO SCH ×2 (09:33→20:49)
[2017-01-21] MEDS: PAROXETINE 10 MG TAB PO SCH (09:33)
--- NOTE | 2017-01-21 10:13 | RADRPT ---
PROCEDURE: US upper extremity Venous. CLINICAL INDICATION: Evaluation prior to central line placement TECHNIQUE: Multiple sonographic images of the bilateral upper extremity venous system was obtained utilizing grayscale, color-flow, compressive sonography and doppler imaging with augmentation. The images were reviewed on a PACS workstation. COMPARISON: None FINDINGS: There is normal compressibility and flow within the bilateral internal jugular and subclavian veins. IMPRESSION: No sonographic evidence for venous thrombosis in the bilateral internal jugular subclavian veins. RPTAT: QQ Physician Geovanna Date Time Electronically viewed and signed by Physician Geovanna on 01/21/2017 10:13 /
[2017-01-21] MEDS ORDERED: SOD CHLORIDE 0.9% 500 ML ONE (14:13)
[2017-01-21] MEDS ORDERED: HEPARIN 1000 UNITS/ML 10 ML INJ ONE (14:13)
[2017-01-21] MEDS ORDERED: LIDOCAINE 1% (MDV) 20 ML INJ ONE (14:13)
[2017-01-21] MEDS ORDERED: CEFAZOLIN 1 GM/50 ML (PMX) 50 ML IVPB ONE (14:14)
[2017-01-21] MEDS ORDERED: PHENYLephrine (100 MCG/ML) 5ML SYG ONE (14:47)
[2017-01-21] MEDS ORDERED: MIDAZOLAM 1 MG/ML 2 ML INJ ONE (14:47)
[2017-01-21] MEDS ORDERED: FENTAnyl 50 MCG/ML VIAL ONE (14:47)
[2017-01-21] MEDS ORDERED: PROPOFOL 40 ML ONE (14:47)
--- NOTE | 2017-01-21 16:05 | RADRPT ---
PROCEDURE: PLACEMENT OF RIGHT INTERNAL JUGULAR VENOUS TUNNELED DIALYSIS CATHETER. CLINICAL INDICATION: Renal failure. TECHNIQUE: Prior to the procedure, informed consent was obtained. Risks including bleeding, infection, and pneu mothorax were explained to the patient and/or the patient's family. The patient and/or the patient's family understood and was willing to proceed. A procedural pause was performed. The patient's name, date of , and procedure to be performed were verified. The central line was inserted with all elements of maximal sterile barrier technique. All of the following were used: head covering, facial mask, sterile gown, sterile gloves, a large sterile sheet, hand hygiene, and 2% chlorhexidine for cutaneous antisepsis. The right neck and anterior/superior chest wall was prepped and draped in usu al sterile fashion. Limited sonography of the right neck was then performed. Noted is a patent right internal jugular ve in. Ultrasound images were recorded and stored in the patient's medical record. Following the local injection of Xylocaine, the right internal jugular vein was punctured under sono graphic guidance with a 20-gauge needle through which a 0.018 inch floppy tip guidewire was advanced into the superior vena cava. The tract was dilated to 5 Yi and the wire was then replaced with a 0.035 in Amplatz guidewire. A tunnel was then created from the anterior lateral aspect of the sup erior right chest wall to the puncture site in the neck and the catheter was pulled through the trac t. Serial dilatation was then performed and a 16 Yi peel away sheath was introduced. The 14.5 Yi 23cm tip to cuff Angiodynamics BioFlo DuraMax dialysis catheter was advanced through the 16 F rench peel-away sheath. The tip of the catheter was confirmed in position within the right atrium. T he peel-away sheath was removed. The 2 ports were each flushed with 2.3 ml of 1:1000 heparin. The c atheter was secured to the skin with 2-0 silk. The wound in the neck was closed with 4-0 Vicryl suture using subcuticular running technique. The site was dressed. The patient tolerated the proce dure well. COMPARISON: None. FINDINGS: Final radiographic images demonstrate the tip of the catheter in the upper right atrium. A total of 0.2 minutes of fluoroscopy time was used. The ultrasound images demonstrate the needle entering th e jugular vein. Ultrasound images were recorded and stored in the patient's medical record. 5 image s of the chest were obtained with image intensifier. IMPRESSION: 1. Percutaneous insertion of right internal jugular dialysis tunneled dialysis catheter under fluoro scopic and sonographic guidance. RPTAT: QQ .Joel Hutchison MD, MD Date Time Electronically viewed and signed by .Joel Hutchison MD, MD on 01/21/2017 16:04 .R/
[2017-01-21] MEDS: CEFTRIAXONE 1 GM/50 ML (PMX) 50 ML IVPB SCH (17:49)
--- NOTE | 2017-01-21 19:14 | PN ---
Date/Time of Note Date/Time of Note DATE: 01/21/17 TIME: 19:12 Assessment/Plan VTE Prophylaxis VTE Prophylaxis Intervention: other Lines/Catheters Urinary Cath still in place: Yes Reason Cath still needed: other (indicate) Assessment/Plan Chief Complaint/Hosp Course 1. The patient is status post diabetic ketoacidosis, diabetes mellitus, hypertension, pneumonia, status post respiratory failure. The patient has ESRD , as per current chart. The patient has obesity, dyslipidemia, noncompliance, anxiety and depression.confusion better plan hd per psychiatry perma cath placed kcl Problems: Subjective 24 Hr Interval Summary Subjective hx not possible: other (s/p permacath placement) Exam/Review of Systems Vital Signs Vitals Vital Signs Date Time Temp Pulse Resp B/P Pulse Ox O2 Delivery O2 Flow Rate FiO2 01/21/17 18:30 95 01/21/17 17:00 18 01/21/17 16:51 97.3 134/63 97 01/21/17 16:47 Room Air 01/21/17 16:02 8.0 01/18/17 04:33 30 Intake and Output 01/20/17 01/20/17 01/21/17 15:00 23:00 07:00 Intake Total 300 ml Output Total 500 ml Balance -200 ml Exam Neck: supple Respiratory: diminished breath sounds Cardiovascular: regular rate and rhythm Gastrointestinal: bowel sounds (+), soft Musculoskeletal: nl extremities to inspection Extremities: normal pulses Results Result Diagram: 01/21/17 0747 01/21/17 0747 Results 24 hrs Laboratory Tests Test 01/20/17 21:15 01/21/17 04:35 01/21/17 07:34 01/21/17 07:47 Bedside Glucose 97 102 98 White Blood Count 4.6 #L Red Blood Count 3.33 L Hemoglobin 7.6 L Hematocrit 25.0 L Mean Corpuscular Volume 75.1 L Mean Corpuscular Hemoglobin 22.8 L Mean Corpuscular Hemoglobin Concent 30.4 L Red Cell Distribution Width 18.0 H Platelet Count 217 Mean Platelet Volume 9.6 Neutrophils % 63.2 Lymphocytes % 24.6 Monocytes % 10.5 Eosinophils % 0.0 Basophils % 0.4 Nucleated Red Blood Cells % 0.0 Neutrophils # 2.9 Lymphocytes # 1.1 Monocytes # 0.5 Eosinophils # 0.0 Basophils # 0.0 Nucleated Red Blood Cells # 0.0 Sodium Level 137 Potassium Level 2.9 *L Chloride Level 105 Carbon Dioxide Level 19 L Anion Gap 16 Blood Urea Nitrogen 49 H Creatinine 2.36 H Glucose Level 92 # Calcium Level 8.6 Total Bilirubin 0.0 L Direct Bilirubin 0.00 Indirect Bilirubin 0.0 Aspartate Amino Transf (AST/SGOT) 25 Alanine Aminotransferase (ALT/SGPT) 37 Alkaline Phosphatase 169 H Total Protein 6.7 Albumin 3.0 L Globulin 3.70 H Albumin/Globulin Ratio 0.81 Test 01/21/17 11:34 01/21/17 17:45 Bedside Glucose 119 159 Medications Medications Current Medications Acetaminophen (Tylenol Tab) 650 mg Q6H PRN PO PAIN AND OR ELEVATED TEMP; Start 01/17/17 at 22:00 Diagnostic Test (Pha) (Accu-Chek) 1 ea 02 XX Last administered on 01/21/17 02: 00; Admin Dose 1 EA; Start 01/18/17 at 02:00 Baclofen (Lioresal) 10 mg TID PRN PO muscle pain; Start 01/17/17 at 22:30 Tramadol HCl (Ultram) 50 mg TID PRN PO PAIN Last administered on 01/20/17 15: 26; Admin Dose 50 MG; Start 01/17/17 at 22:30 Paroxetine HCl (Paxil) 30 mg DAILY PO Last administered on 01/21/17 09:33; Admin Dose 30 MG; Start 01/18/17 at 09:00 Miscellaneous Information 1 ea NOTE XX ; Start 01/17/17 at 23:15 Glucose (Glutose) 15 gm Q15M PRN PO DECREASED GLUCOSE; Start 01/17/17 at 23:15 Glucose (Glutose) 22.5 gm Q15M PRN PO DECREASED GLUCOSE; Start 01/17/17 at 23: 15 Dextrose (D50w Syringe) 25 ml Q15M PRN IV DECREASED GLUCOSE Last administered on 01/20/17 07:54; Admin Dose 25 ML; Start 01/17/17 at 23:15 Dextrose (D50w Syringe) 50 ml Q15M PRN IV DECREASED GLUCOSE Last administered on 01/20/17 12:10; Admin Dose 50 ML; Start 01/17/17 at 23:15 Glucagon (Glucagen) 1 mg Q15M PRN IM DECREASED GLUCOSE; Start 11/4/17 at 23:15 Glucose (Glutose) 15 gm Q15M PRN BUCCAL DECREASED GLUCOSE; Start 01/17/17 at 23 :15 Lorazepam 1 mg 1 mg Q6H PRN IV ANXIETY Last administered on 01/20/17 23:35; Admin Dose 1 MG; Start 01/18/17 at 04:16 Ceftriaxone Sodium (Rocephin) 50 ml @ 100 mls/hr Q24H IVPB Last administered on 01/21/17 17:49; Admin Dose 100 MLS/HR; Start 01/18/17 at 15:00 Pantoprazole (Protonix Tab) 40 mg DAILY@06 PO Last administered on 01/21/17 06 :26; Admin Dose 40 MG; Start 01/19/17 at 06:00 Lorazepam (Ativan) 1 mg Q4 PRN IV ANXIETY Last administered on 01/19/17 15:50 ; Admin Dose 1 MG; Start 01/19/17 at 03:30 Polyethylene Glycol (Miralax) 119 gm DAILY PO Last administered on 01/19/17 08 :23; Admin Dose 119 GM; Start 01/19/17 at 09:00 Lubiprostone (Amitiza) 24 mcg BID PO Last administered on 01/21/17 09:33; Admin Dose 24 MCG; Start 01/19/17 at 09:00 Quetiapine Fumarate 50 mg 50 mg HS PO Last administered on 01/20/17 21:16; Admin Dose 50 MG; Start 01/19/17 at 21:00 Dextrose/Sodium Chloride (D5-1/2ns) 1,000 ml @ 50 mls/hr Q20H IV Last administered on 01/21/17 04:58; Admin Dose 50 MLS/HR; Start 01/19/17 at 12:00 Insulin Glargine (Lantus) 35 unit HS SC ; Start 01/19/17 at 23:47 KATHY MARTINEZ MD Jan 21, 2017 19:14
[2017-01-21] MEDS: ACETAMINOPHEN 325 MG TAB PO PRN (20:48)
[2017-01-21] MEDS: QUETIAPINE 25 MG TAB PO SCH (20:49)
[2017-01-21] MEDS: INSULIN GLARGINE [LANtus] 3 ML PEN SC SCH (20:50)
[2017-01-22] VITALS (11 sets, daily range): BP systolic 92–119; BP diastolic 50–69; PULSE 78–110; RESP 16–18
[2017-01-22] MEDS: DEXTROSE 5%-0.45% NACL 1,000 ML IV SCH ×2 (00:26→23:00)
[2017-01-22] MEDS: LORAZEPAM 2 MG INJ IV PRN (01:11)
[2017-01-22] MEDS: ACCU-CHEK XX SCH (02:21)
[2017-01-22] MEDS: PANTOPRAZOLE (EC) 40 MG TAB PO SCH (06:15)
[2017-01-22] MEDS: INSULIN ASPART [NOVOLOG] 3 ML PEN SC SCH ×4 (08:00→21:00)
[2017-01-22] MEDS: LUBIPROSTONE 24 MCG CAP PO SCH ×2 (08:41→21:44)
[2017-01-22] MEDS: PAROXETINE 10 MG TAB PO SCH (08:42)
[2017-01-22] MEDS: POLYETHYLENE GLYCOL 3350 119 GM POWDER PO SCH (08:50)
--- NOTE | 2017-01-22 09:01 | RADRPT ---
PROCEDURE: Ultrasound guidance for placement of needle in right internal jugular vein. CLINICAL INDICATION: Venous access. TECHNIQUE: Prior to the procedure, informed consent was obtained. Risks including bleeding, infection, and pneu mothorax were explained to the patient. The patient understood and was willing to proceed. A procedu ral pause was performed. The patient's name, date of , and procedure to be performed were verif ied. The central line was inserted with all elements of maximal sterile barrier technique. All of th e following were used: head covering, facial mask, sterile gown, sterile gloves, a large sterile she et, hand hygiene, and 2% chlorhexidine for cutaneous antisepsis. The right neck and anterior/super ior chest wall was prepped and draped in usual sterile fashion. Limited sonography of the right neck was then performed. Noted is a patent right internal jugular ve in. Ultrasound images were recorded and stored in the patient's medical record. Following the local injection of Xylocaine, the right internal jugular vein was punctured under sono graphic guidance with a 20-gauge needle through which a 0.018 inch floppy tip guidewire was advanced into the superior vena cava. The patient tolerated the procedure well. The remainder of the proce dure was performed and dictated under separate cover. COMPARISON: None. FINDINGS: The ultrasound images demonstrate a patent right internal jugular vein. The subsequent images demon strate the needle entering the right internal jugular vein. IMPRESSION: 1. Ultrasound guidance for a needle placement in right internal jugular vein. RPTAT: QQ .Joel Hutchison MD, Date Time Electronically viewed and signed by .Joel Hutchison MD, on 01/22/2017 09:00 .R/
[2017-01-22 09:09] LABS: ALBUMIN/GLOBULIN RATIO 0.81; BILIRUBIN,INDIRECT 0.1 mg/dl (0-1.1); BILIRUBIN,TOTAL 0.1 mg/dl (0.2-1.3); CALCIUM 8.5 mg/dl (8.4-10.2); CREATININE 1.46 mg/dl (0.44-1.00); POTASSIUM 3.2 mmol/L (3.5-5.1); TOTAL PROTEIN 6.7 g/dl (6.1-8.1)
[2017-01-22] MEDS: traMADol 50 MG TAB PO PRN (12:55)
[2017-01-22] MEDS: CEFTRIAXONE 1 GM/50 ML (PMX) 50 ML IVPB SCH (15:40)
[2017-01-22] MEDS: BACLOFEN 10 MG TAB PO PRN (16:32)
[2017-01-22] MEDS: ACETAMINOPHEN 325 MG TAB PO PRN (17:58)
[2017-01-22] MEDS ORDERED: POTASSIUM CHLORIDE (SR) 10 MEQ TAB PO ONE (18:30)
--- NOTE | 2017-01-22 18:30 | PN ---
Date/Time of Note Date/Time of Note DATE: 01/22/17 TIME: 18:29 Assessment/Plan VTE Prophylaxis VTE Prophylaxis Intervention: other Lines/Catheters [facility] perm cath Urinary Cath still in place: No Reason Cath still needed: other (indicate) Assessment/Plan Chief Complaint/Hosp Course 1. The patient is status post diabetic ketoacidosis, diabetes mellitus, hypertension, pneumonia, status post respiratory failure. The patient has ESRD , as per current chart. The patient has obesity, dyslipidemia, noncompliance, anxiety and depression.confusion better plan hd per psychiatry perma cath placed kcl CK BMP Problems: Subjective 24 Hr Interval Summary Gastrointestinal: no complaints Genitourinary: no complaints Exam/Review of Systems Vital Signs Vitals Vital Signs Date Time Temp Pulse Resp B/P Pulse Ox O2 Delivery O2 Flow Rate FiO2 01/22/17 16:07 83 01/22/17 15:27 98.5 16 112/69 97 01/22/17 08:10 Nasal Cannula 2.0 Intake and Output 01/21/17 01/21/17 01/22/17 14:59 22:59 06:59 Intake Total 250 ml 640 ml Output Total 500 ml 2500 ml Balance -250 ml -1860 ml Exam Respiratory: clear to auscultation Cardiovascular: regular rate and rhythm Gastrointestinal: soft Genitourinary - Female: nl adnexae Musculoskeletal: nl extremities to inspection Results Result Diagram: 01/21/17 0747 01/22/17 0834 Results 24 hrs Laboratory Tests Test 01/21/17 20:47 01/22/17 01:34 01/22/17 08:34 01/22/17 08:44 Bedside Glucose 213 128 102 Sodium Level 140 Potassium Level 3.2 L Chloride Level 106 Carbon Dioxide Level 26 Anion Gap 11 Blood Urea Nitrogen 25 #H Creatinine 1.46 H Glucose Level 106 Calcium Level 8.5 Total Bilirubin 0.1 L Direct Bilirubin 0.00 Indirect Bilirubin 0.1 Aspartate Amino Transf (AST/SGOT) 24 Alanine Aminotransferase (ALT/SGPT) 35 Alkaline Phosphatase 156 H Total Protein 6.7 Albumin 3.0 L Globulin 3.70 H Albumin/Globulin Ratio 0.81 Test 01/22/17 11:41 01/22/17 18:00 Bedside Glucose 127 105 Medications Medications Current Medications Acetaminophen (Tylenol Tab) 650 mg Q6H PRN PO PAIN AND OR ELEVATED TEMP Last administered on 01/22/17 17:58; Admin Dose 650 MG; Start 01/17/17 at 22:00 Diagnostic Test (Pha) (Accu-Chek) 1 ea 02 XX Last administered on 01/22/17 02: 21; Admin Dose 1 EA; Start 01/18/17 at 02:00 Baclofen (Lioresal) 10 mg TID PRN PO muscle pain Last administered on 16:32; Admin Dose 10 MG; Start 01/17/17 at 22:30 Tramadol HCl (Ultram) 50 mg TID PRN PO PAIN Last administered on 01/22/17 12: 55; Admin Dose 50 MG; Start 01/17/17 at 22:30 Paroxetine HCl (Paxil) 30 mg DAILY PO Last administered on 01/22/17 08:42; Admin Dose 30 MG; Start 01/18/17 at 09:00 Miscellaneous Information 1 ea NOTE XX ; Start 01/17/17 at 23:15 Glucose (Glutose) 15 gm Q15M PRN PO DECREASED GLUCOSE; Start 01/17/17 at 23:15 Glucose (Glutose) 22.5 gm Q15M PRN PO DECREASED GLUCOSE; Start 01/17/17 at 23: 15 Dextrose (D50w Syringe) 25 ml Q15M PRN IV DECREASED GLUCOSE Last administered on 01/20/17 07:54; Admin Dose 25 ML; Start 01/17/17 at 23:15 Dextrose (D50w Syringe) 50 ml Q15M PRN IV DECREASED GLUCOSE Last administered on 01/20/17 12:10; Admin Dose 50 ML; Start 01/17/17 at 23:15 Glucagon (Glucagen) 1 mg Q15M PRN IM DECREASED GLUCOSE; Start 01/17/17 at 23:15 Glucose (Glutose) 15 gm Q15M PRN BUCCAL DECREASED GLUCOSE; Start 01/17/17 at 23 :15 Lorazepam 1 mg 1 mg Q6H PRN IV ANXIETY Last administered on 01/22/17 01:11; Admin Dose 1 MG; Start 01/18/17 at 04:16 Ceftriaxone Sodium (Rocephin) 50 ml @ 100 mls/hr Q24H IVPB Last administered on 01/22/17 15:40; Admin Dose 100 MLS/HR; Start 01/18/17 at 15:00 Pantoprazole (Protonix Tab) 40 mg DAILY@06 PO Last administered on 01/22/17 06 :15; Admin Dose 40 MG; Start 01/19/17 at 06:00 Lorazepam (Ativan) 1 mg Q4 PRN IV ANXIETY Last administered on 01/19/17 15:50 ; Admin Dose 1 MG; Start 01/19/17 at 03:30 Polyethylene Glycol (Miralax) 119 gm DAILY PO Last administered on 01/19/17 08 :23; Admin Dose 119 GM; Start 01/19/17 at 09:00 Lubiprostone (Amitiza) 24 mcg BID PO Last administered on 01/22/17 08:41; Admin Dose 24 MCG; Start 01/19/17 at 09:00 Quetiapine Fumarate 50 mg 50 mg HS PO Last administered on 01/21/17 20:49; Admin Dose 50 MG; Start 01/19/17 at 21:00 Dextrose/Sodium Chloride (D5-1/2ns) 1,000 ml @ 50 mls/hr Q20H IV Last administered on 01/22/17 00:26; Admin Dose 50 MLS/HR; Start 01/19/17 at 12:00 Insulin Glargine (Lantus) 35 unit HS SC Last administered on 01/21/17 20:50; Admin Dose 35 UNIT; Start 01/19/17 at 23:47 KATHY MARTINEZ MD Jan 22, 2017 18:30
--- NOTE | 2017-01-22 18:50 | CONS ---
Date/Time of Note Date/Time of Note DATE: 01/22/17 TIME: 18:48 Assessment/Plan Assessment/Plan Chief Complaint/Hosp Course 1. The patient is status post diabetic ketoacidosis, diabetes mellitus, hypertension, pneumonia, status post respiratory failure. The patient has ESRD , as per current chart. The patient has obesity, dyslipidemia, noncompliance, anxiety and depression.confusion better s/p metabolic encephalopayhy s/p dka s/p acute psychiatric decompensatiou plan hd per psychiatry perma cath placed kcl CK BMP Problems: Consultation Date/Type/Reason Admit Date/Time Jan 17, 2017 at 18:01 Initial Consult Date Type of Consultation: renal Exam/Review of Systems Vital Signs Vitals Vital Signs Date Time Temp Pulse Resp B/P Pulse Ox O2 Delivery O2 Flow Rate FiO2 01/22/17 16:07 83 01/22/17 15:27 98.5 16 112/69 97 01/22/17 08:10 Nasal Cannula 2.0 Intake and Output 01/21/17 01/21/17 01/22/17 15:00 23:00 07:00 Intake Total 250 ml 640 ml 200 ml Output Total 500 ml 2500 ml 800 ml Balance -250 ml -1860 ml -600 ml Exam Respiratory: clear to auscultation Cardiovascular: regular rate and rhythm Results Result Diagram: 01/21/17 0747 01/22/17 0834 Results 24 hrs Laboratory Tests Test 01/21/17 20:47 01/22/17 01:34 01/22/17 08:34 01/22/17 08:44 Bedside Glucose 213 128 102 Sodium Level 140 Potassium Level 3.2 L Chloride Level 106 Carbon Dioxide Level 26 Anion Gap 11 Blood Urea Nitrogen 25 #H Creatinine 1.46 H Glucose Level 106 Calcium Level 8.5 Total Bilirubin 0.1 L Direct Bilirubin 0.00 Indirect Bilirubin 0.1 Aspartate Amino Transf (AST/SGOT) 24 Alanine Aminotransferase (ALT/SGPT) 35 Alkaline Phosphatase 156 H Total Protein 6.7 Albumin 3.0 L Globulin 3.70 H Albumin/Globulin Ratio 0.81 Test 01/22/17 11:41 01/22/17 18:00 Bedside Glucose 127 105 Medications Medications Current Medications Acetaminophen (Tylenol Tab) 650 mg Q6H PRN PO PAIN AND OR ELEVATED TEMP Last administered on 01/22/17t 17:58; Admin Dose 650 MG; Start 01/17/17 at 22:00 Diagnostic Test (Pha) (Accu-Chek) 1 ea 02 XX Last administered on 01/22/17 02: 21; Admin Dose 1 EA; Start 01/18/17 at 02:00 Baclofen (Lioresal) 10 mg TID PRN PO muscle pain Last administered on 16:32; Admin Dose 10 MG; Start 01/17/17 at 22:30 Tramadol HCl (Ultram) 50 mg TID PRN PO PAIN Last administered on 01/22/17 12: 55; Admin Dose 50 MG; Start 01/17/17 at 22:30 Paroxetine HCl (Paxil) 30 mg DAILY PO Last administered on 01/22/17 08:42; Admin Dose 30 MG; Start 01/18/17 at 09:00 Miscellaneous Information 1 ea NOTE XX ; Start 01/17/17 at 23:15 Glucose (Glutose) 15 gm Q15M PRN PO DECREASED GLUCOSE; Start 01/17/17 at 23:15 Glucose (Glutose) 22.5 gm Q15M PRN PO DECREASED GLUCOSE; Start 01/17/17 at 23: 15 Dextrose (D50w Syringe) 25 ml Q15M PRN IV DECREASED GLUCOSE Last administered on 01/20/17 07:54; Admin Dose 25 ML; Start 01/17/17 at 23:15 Dextrose (D50w Syringe) 50 ml Q15M PRN IV DECREASED GLUCOSE Last administered on 01/20/17 12:10; Admin Dose 50 ML; Start 01/17/17 at 23:15 Glucagon (Glucagen) 1 mg Q15M PRN IM DECREASED GLUCOSE; Start 01/17/17 at 23:15 Glucose (Glutose) 15 gm Q15M PRN BUCCAL DECREASED GLUCOSE; Start 01/17/17 at 23 :15 Lorazepam 1 mg 1 mg Q6H PRN IV ANXIETY Last administered on 01/22/17 01:11; Admin Dose 1 MG; Start 01/18/17 at 04:16 Ceftriaxone Sodium (Rocephin) 50 ml @ 100 mls/hr Q24H IVPB Last administered on 01/22/17 15:40; Admin Dose 100 MLS/HR; Start 01/18/17 at 15:00 Pantoprazole (Protonix Tab) 40 mg DAILY@06 PO Last administered on 01/22/17 06 :15; Admin Dose 40 MG; Start 01/19/17 at 06:00 Lorazepam (Ativan) 1 mg Q4 PRN IV ANXIETY Last administered on 01/19/17 15:50 ; Admin Dose 1 MG; Start 01/19/17 at 03:30 Polyethylene Glycol (Miralax) 119 gm DAILY PO Last administered on 01/19/17 08 :23; Admin Dose 119 GM; Start 01/19/17 at 09:00 Lubiprostone (Amitiza) 24 mcg BID PO Last administered on 01/22/17 08:41; Admin Dose 24 MCG; Start 01/19/17 at 09:00 Quetiapine Fumarate 50 mg 50 mg HS PO Last administered on 01/21/17 20:49; Admin Dose 50 MG; Start 01/19/17 at 21:00 Dextrose/Sodium Chloride (D5-1/2ns) 1,000 ml @ 50 mls/hr Q20H IV Last administered on 01/22/17 00:26; Admin Dose 50 MLS/HR; Start 01/19/17 at 12:00 Insulin Glargine (Lantus) 35 unit HS SC Last administered on 01/21/17 20:50; Admin Dose 35 UNIT; Start 01/19/17 at 23:47 Potassium Chloride (Klor-Con 10) 30 meq ONCE ONCE PO ; Start 01/22/17 at 18:30 ; Stop 01/22/17 at 18:31; Status KATHY MCKEON MD Jan 22, 2017 18:50
[2017-01-22] MEDS: QUETIAPINE 25 MG TAB PO SCH (21:44)
[2017-01-22] MEDS: INSULIN GLARGINE [LANtus] 3 ML PEN SC SCH (21:55)
[2017-01-23] VITALS (7 sets, daily range): BP systolic 108–125; BP diastolic 58–81; PULSE 98; RESP 18–20
[2017-01-23] MEDS: ACCU-CHEK XX SCH (02:00)
[2017-01-23] MEDS: PANTOPRAZOLE (EC) 40 MG TAB PO SCH (06:26)
[2017-01-23] MEDS: traMADol 50 MG TAB PO PRN (07:53)
[2017-01-23] MEDS: INSULIN ASPART [NOVOLOG] 3 ML PEN SC SCH ×4 (07:53→21:00)
[2017-01-23] MEDS: POLYETHYLENE GLYCOL 3350 119 GM POWDER PO SCH (08:48)
[2017-01-23] MEDS: LUBIPROSTONE 24 MCG CAP PO SCH ×2 (08:48→21:39)
[2017-01-23] MEDS: PAROXETINE 10 MG TAB PO SCH (08:48)
[2017-01-23] MEDS: BACLOFEN 10 MG TAB PO PRN (08:54)
[2017-01-23 09:06] LABS: ALBUMIN 2.8 g/dl (3.3-4.9); ALBUMIN/GLOBULIN RATIO 0.73; BILIRUBIN,INDIRECT 0.1 mg/dl (0-1.1); BILIRUBIN,TOTAL 0.1 mg/dl (0.2-1.3); CALCIUM 8.4 mg/dl (8.4-10.2); CREATININE 1.26 mg/dl (0.44-1.00); POTASSIUM 3.5 mmol/L (3.5-5.1); TOTAL PROTEIN 6.6 g/dl (6.1-8.1)
--- NOTE | 2017-01-23 11:41 | PN ---
Date/Time of Note Date/Time of Note DATE: 01/23/17 TIME: 11:39 Assessment/Plan VTE Prophylaxis VTE Prophylaxis Intervention: ambulation Lines/Catheters IV [facility] Type (from [facility] permacath Urinary Cath still in place: No Assessment/Plan Chief Complaint/Hosp Course 1. The patient is status post diabetic ketoacidosis, 2.Diabetes mellitus, 3. Hypertension, pneumonia, 4. status post respiratory failure. 5. ESRD, 6. obesity, 7.dyslipidemia, 8. noncompliance, 9. anxiety and depression Problems: Assessment/Plan 1.Continue hd 2. Per psychiatry Subjective 24 Hr Interval Summary Constitutional: improved, no complaints Exam/Review of Systems Vital Signs Vitals Vital Signs Date Time Temp Pulse Resp B/P Pulse Ox O2 Delivery O2 Flow Rate FiO2 01/23/17 08:19 97.7 88 18 125/73 97 01/22/17 08:10 Nasal Cannula 2.0 Intake and Output 01/22/17 01/22/17 01/23/17 15:00 23:00 07:00 Intake Total 740 ml Output Total 250 ml Balance 490 ml Exam Constitutional: alert, oriented ENMT: nl external ears & nose Neck: supple Respiratory: clear to auscultation Cardiovascular: regular rate and rhythm Gastrointestinal: soft Results Result Diagram: 01/21/17 0747 01/23/17 0752 Results 24 hrs Laboratory Tests Test 01/22/17 11:41 01/22/17 18:00 01/22/17 21:42 01/23/17 07:05 Bedside Glucose 127 105 107 Lab Scanned Report REFERENCE LAB Test 01/23/17 07:52 01/23/17 11:16 Sodium Level 138 Potassium Level 3.5 Chloride Level 108 Carbon Dioxide Level 23 Anion Gap 11 Blood Urea Nitrogen 22 H Creatinine 1.26 H Glucose Level 83 Bedside Glucose 89 122 Calcium Level 8.4 Total Bilirubin 0.1 L Direct Bilirubin 0.00 Indirect Bilirubin 0.1 Aspartate Amino Transf (AST/SGOT) 32 Alanine Aminotransferase (ALT/SGPT) 34 Alkaline Phosphatase 137 H Total Protein 6.6 Albumin 2.8 L Globulin 3.80 H Albumin/Globulin Ratio 0.73 Medications Medications Current Medications Acetaminophen (Tylenol Tab) 650 mg Q6H PRN PO PAIN AND OR ELEVATED TEMP Last administered on 01/22/17t 17:58; Admin Dose 650 MG; Start 01/17/17 at 22:00 Diagnostic Test (Pha) (Accu-Chek) 1 ea 02 XX Last administered on 01/22/17 02: 21; Admin Dose 1 EA; Start 01/18/17 at 02:00 Baclofen (Lioresal) 10 mg TID PRN PO muscle pain Last administered on 08:54; Admin Dose 10 MG; Start 01/17/17 at 22:30 Tramadol HCl (Ultram) 50 mg TID PRN PO PAIN Last administered on 01/23/17 07: 53; Admin Dose 50 MG; Start 01/17/17 at 22:30 Paroxetine HCl (Paxil) 30 mg DAILY PO Last administered on 01/23/17 08:48; Admin Dose 30 MG; Start 01/18/17 at 09:00 Miscellaneous Information 1 ea NOTE XX ; Start 01/17/17 at 23:15 Glucose (Glutose) 15 gm Q15M PRN PO DECREASED GLUCOSE; Start 01/17/17 at 23:15 Glucose (Glutose) 22.5 gm Q15M PRN PO DECREASED GLUCOSE; Start 01/17/17 at 23: 15 Dextrose (D50w Syringe) 25 ml Q15M PRN IV DECREASED GLUCOSE Last administered on 01/20/17 07:54; Admin Dose 25 ML; Start 01/17/17 at 23:15 Dextrose (D50w Syringe) 50 ml Q15M PRN IV DECREASED GLUCOSE Last administered on 01/20/17 12:10; Admin Dose 50 ML; Start 01/17/17 at 23:15 Glucagon (Glucagen) 1 mg Q15M PRN IM DECREASED GLUCOSE; Start 01/17/17 at 23:15 Glucose (Glutose) 15 gm Q15M PRN BUCCAL DECREASED GLUCOSE; Start 01/17/17 at 23 :15 Lorazepam 1 mg 1 mg Q6H PRN IV ANXIETY Last administered on 01/22/17 01:11; Admin Dose 1 MG; Start 01/18/17 at 04:16 Ceftriaxone Sodium (Rocephin) 50 ml @ 100 mls/hr Q24H IVPB Last administered on 01/22/17 15:40; Admin Dose 100 MLS/HR; Start 01/18/17 at 15:00 Pantoprazole (Protonix Tab) 40 mg DAILY@06 PO Last administered on 01/23/17 06:26; Admin Dose 40 MG; Start 01/19/17 at 06:00 Lorazepam (Ativan) 1 mg Q4 PRN IV ANXIETY Last administered on 01/19/17 15:50 ; Admin Dose 1 MG; Start 01/19/17 at 03:30 Polyethylene Glycol (Miralax) 119 gm DAILY PO Last administered on 01/19/17 08 :23; Admin Dose 119 GM; Start 01/19/17 at 09:00 Lubiprostone (Amitiza) 24 mcg BID PO Last administered on 01/23/17 08:48; Admin Dose 24 MCG; Start 01/19/17 at 09:00 Quetiapine Fumarate 50 mg 50 mg HS PO Last administered on 01/22/17 21:44; Admin Dose 50 MG; Start 01/19/17 at 21:00 Dextrose/Sodium Chloride (D5-1/2ns) 1,000 ml @ 50 mls/hr Q20H IV Last administered on 01/22/17 23:00; Admin Dose 50 MLS/HR; Start 01/19/17 at 12:00 Insulin Glargine (Lantus) 35 unit HS SC Last administered on 01/22/17 21:55; Admin Dose 35 UNIT; Start 01/19/17 at 23:47 Ondansetron HCl (Zofran Inj) 4 mg Q4H PRN IV NAUSEA AND/OR VOMITING; Start 12/30 at 11:30 BRO WEAVER Jan 23, 2017 11:41
[2017-01-23] MEDS: ONDANSETRON 4 MG INJ IV PRN (12:07)
[2017-01-23] MEDS: CEFTRIAXONE 1 GM/50 ML (PMX) 50 ML IVPB SCH (15:10)
--- NOTE | 2017-01-23 15:13 | PSY ---
Date/Time of Note Date/Time of Note DATE: 01/23/17 TIME: 15:08 Psychiatric Subjective Eval Consent Pt consented to telemedicine: Yes Subjective Evaluation Patient location: inpatient Reason for consult: confusion History of present illness 42 yo femal ewith hx depression and anxiety, no hx psychosis , per pt and the chart, admitted due to ALOC; pt was seen on 01/20/17; spoke with Dr Billy, pt is medically cleared for discharged. Pt is alert and oriented x4; she says she will be discharged to stay with her mother and her sister. She denies ah or vh , татьяна si orhi, татьяна paranoia, she is organzied nad sequential in her thinking. Past psychiatric history no inpt Family History denies Medical history as per record Allergies: Coded Allergies: No Known Allergy (Unverified , 04/29/16) Substance Abuse Substance use: No known substance abuse Social History Marital status: Level of education: HS DPA/Conservatorship: No Occupation/Mcc: disabled Psychiatric Objective Eval Review of Systems: Review of Systems: Not Applicable Physical Examination: Physical Examination: Not Applicable Mental Status Examination: Appearance: Disheveled Eye Contact: Good Psychomotor Activity: Normal Behavior: Cooperative Speech: Clear Mood: Appropriate/Full Though Process: Linear Thought Content: Normal Suicidal: No Homicidal: No On 72 hour hold: No Orientation: x4 Cognition: Alert Insight: Intact Judgement: Intact Laboratory Results Laboratory Tests Test 01/21/17 17:45 01/21/17 20:47 01/22/17 01:34 01/22/17 08:34 Bedside Glucose 159mg/dL 213mg/dL 128mg/dL Sodium Level 140mmol/L Potassium Level 3.2mmol/L Chloride Level 106mmol/L Carbon Dioxide Level 26mmol/L Anion Gap 11 Blood Urea Nitrogen 25mg/dl Creatinine 1.46mg/dl Glucose Level 106mg/dl Calcium Level 8.5mg/dl Total Bilirubin 0.1mg/dl Direct Bilirubin 0.00mg/dl Indirect Bilirubin 0.1mg/dl Aspartate Amino Transf (AST/SGOT) 24IU/L Alanine Aminotransferase (ALT/SGPT) 35IU/L Alkaline Phosphatase 156IU/L Total Protein 6.7g/dl Albumin 3.0g/dl Globulin 3.70g/dl Albumin/Globulin Ratio 0.81 Test 01/22/17 08:44 11/9/17 11:41 01/22/17 18:00 01/22/17 21:42 Bedside Glucose 102mg/dL 127mg/dL 105mg/dL 107mg/dL Test 01/23/17 07:05 01/23/17 07:52 01/23/17 11:16 Lab Scanned Report REFERENCE [id number] Sodium Level 138mmol/L Potassium Level 3.5mmol/L Chloride Level 108mmol/L Carbon Dioxide Level 23mmol/L Anion Gap 11 Blood Urea Nitrogen 22mg/dl Creatinine 1.26mg/dl Glucose Level 83mg/dl Bedside Glucose 89mg/dL 122mg/dL Calcium Level 8.4mg/dl Total Bilirubin 0.1mg/dl Direct Bilirubin 0.00mg/dl Indirect Bilirubin 0.1mg/dl Aspartate Amino Transf (AST/SGOT) 32IU/L Alanine Aminotransferase (ALT/SGPT) 34IU/L Alkaline Phosphatase 137IU/L Total Protein 6.6g/dl Albumin 2.8g/dl Globulin 3.80g/dl Albumin/Globulin Ratio 0.73 Assessment and Plan Assessment/Diagnosis [place] I: Delirium, resolved. Anxiety disorder by history [place] II: defered [place] III: as per record [place] IV: moderate [place] V: gaf 45 Recommendation/Plan Medication Management continue current meds regime Psychotherapy defer to outpt Follow-up/Disposition pt will follow up with her outpt providers. BUFFY BAEZA MD Jan 23, 2017 15:13
[2017-01-23] MEDS: DEXTROSE 5%-0.45% NACL 1,000 ML IV SCH ×2 (16:00→21:33)
[2017-01-23] MEDS: QUETIAPINE 25 MG TAB PO SCH (21:39)
[2017-01-23] MEDS: INSULIN GLARGINE [LANtus] 3 ML PEN SC SCH (21:44)
[2017-01-24] VITALS (10 sets, daily range): BP systolic 114–138; BP diastolic 57–72; PULSE 75–91; RESP 15–20
[2017-01-24] MEDS: ACCU-CHEK XX SCH (02:00)
[2017-01-24] MEDS: PANTOPRAZOLE (EC) 40 MG TAB PO SCH (06:06)
[2017-01-24 06:59] LABS: ALBUMIN 2.8 g/dl (3.3-4.9); ALBUMIN/GLOBULIN RATIO 0.82; BILIRUBIN,INDIRECT 0.1 mg/dl (0-1.1); BILIRUBIN,TOTAL 0.1 mg/dl (0.2-1.3); CALCIUM 7.9 mg/dl (8.4-10.2); CREATININE 1.17 mg/dl (0.44-1.00); POTASSIUM 3.4 mmol/L (3.5-5.1); TOTAL PROTEIN 6.2 g/dl (6.1-8.1)
[2017-01-24] MEDS: INSULIN ASPART [NOVOLOG] 3 ML PEN SC SCH ×4 (08:00→20:10)
[2017-01-24] MEDS: POLYETHYLENE GLYCOL 3350 119 GM POWDER PO SCH (08:22)
[2017-01-24] MEDS: LUBIPROSTONE 24 MCG CAP PO SCH ×2 (08:22→20:10)
[2017-01-24] MEDS: ACETAMINOPHEN 325 MG TAB PO PRN ×3 (08:22→22:49)
[2017-01-24] MEDS: PAROXETINE 10 MG TAB PO SCH (08:23)
[2017-01-24 08:40] LABS: CALCIUM 7.8 mg/dl (8.4-10.2); CREATININE 1.15 mg/dl (0.44-1.00); POTASSIUM 4.6 mmol/L (3.5-5.1)
--- NOTE | 2017-01-24 11:53 | PN ---
Date/Time of Note Date/Time of Note DATE: 01/24/17 TIME: 11:50 Assessment/Plan VTE Prophylaxis VTE Prophylaxis Intervention: ambulation Lines/Catheters IV Catheter Type (from Nrs): Permacath Urinary Cath still in place: No Assessment/Plan Chief Complaint/Hosp Course 1. The patient is status post diabetic ketoacidosis, 2.Diabetes mellitus, controlled 3. Hypertension, pneumonia, 4. status post respiratory failure. 5. ESRD, 6. obesity, 7.dyslipidemia, 8. noncompliance, 9. anxiety and depression Problems: Assessment/Plan 1. Pt was cleared by psychiatry 2. Stable 3. Discharge pending 4. HD placement issue, pt needs to be placed outpatient. Might not be available until Thursday Subjective 24 Hr Interval Summary Constitutional: improved, no complaints Gastrointestinal: no complaints Exam/Review of Systems Vital Signs Vitals Vital Signs Date Time Temp Pulse Resp B/P Pulse Ox O2 Delivery O2 Flow Rate FiO2 01/24/17 08:18 75 01/24/17 07:15 98.0 19 114/60 99 01/22/17 08:10 Nasal Cannula 2.0 Intake and Output 01/23/17 01/23/17 01/24/17 15:00 23:00 07:00 Intake Total 650 ml 350 ml Balance 650 ml 350 ml Results Result Diagram: 01/21/17 0747 01/24/17 0746 Results 24 hrs Laboratory Tests Test 01/23/17 18:11 01/23/17 21:37 01/24/17 06:05 01/24/17 07:46 Bedside Glucose 117 129 Sodium Level 140 139 Potassium Level 3.4 L 4.6 Chloride Level 109 109 Carbon Dioxide Level 22 21 Anion Gap 12 14 Blood Urea Nitrogen 18 18 Creatinine 1.17 H 1.15 H Glucose Level 109 103 Calcium Level 7.9 L 7.8 L Total Bilirubin 0.1 L Direct Bilirubin 0.00 Indirect Bilirubin 0.1 Aspartate Amino Transf (AST/SGOT) 28 Alanine Aminotransferase (ALT/SGPT) 30 Alkaline Phosphatase 126 H Total Protein 6.2 Albumin 2.8 L Globulin 3.40 H Albumin/Globulin Ratio 0.82 Test 01/24/17 08:08 Bedside Glucose 105 Medications Medications Current Medications Acetaminophen (Tylenol Tab) 650 mg Q6H PRN PO PAIN AND OR ELEVATED TEMP Last administered on 01/24/17t 08:22; Admin Dose 650 MG; Start 01/17/17 at 22:00 Diagnostic Test (Pha) (Accu-Chek) 1 ea 02 XX Last administered on 01/22/17 02: 21; Admin Dose 1 EA; Start 01/18/17 at 02:00 Baclofen (Lioresal) 10 mg TID PRN PO muscle pain Last administered on 08:54; Admin Dose 10 MG; Start 01/17/17 at 22:30 Tramadol HCl (Ultram) 50 mg TID PRN PO PAIN Last administered on 01/23/17 07: 53; Admin Dose 50 MG; Start 01/17/17 at 22:30 Paroxetine HCl (Paxil) 30 mg DAILY PO Last administered on 01/24/17 08:23; Admin Dose 30 MG; Start 01/18/17 at 09:00 Miscellaneous Information 1 ea NOTE XX ; Start 01/17/17 at 23:15 Glucose (Glutose) 15 gm Q15M PRN PO DECREASED GLUCOSE; Start 01/17/17 at 23:15 Glucose (Glutose) 22.5 gm Q15M PRN PO DECREASED GLUCOSE; Start 01/17/17 at 23: 15 Dextrose (D50w Syringe) 25 ml Q15M PRN IV DECREASED GLUCOSE Last administered on 01/20/17 07:54; Admin Dose 25 ML; Start 01/17/17 at 23:15 Dextrose (D50w Syringe) 50 ml Q15M PRN IV DECREASED GLUCOSE Last administered on 01/20/17 12:10; Admin Dose 50 ML; Start 01/17/17 at 23:15 Glucagon (Glucagen) 1 mg Q15M PRN IM DECREASED GLUCOSE; Start 01/17/17 at 23:15 Glucose (Glutose) 15 gm Q15M PRN BUCCAL DECREASED GLUCOSE; Start 01/17/17 at 23 :15 Lorazepam (Ativan) 1 mg Q6H PRN IV ANXIETY Last administered on 01/22/17 01:11 ; Admin Dose 1 MG; Start 01/18/17 at 04:16 Pantoprazole (Protonix Tab) 40 mg DAILY@06 PO Last administered on 01/24/17 06:06; Admin Dose 40 MG; Start 01/19/17 at 06:00 Lorazepam (Ativan) 1 mg Q4 PRN IV ANXIETY Last administered on 01/19/17 15:50 ; Admin Dose 1 MG; Start 01/19/17 at 03:30 Polyethylene Glycol (Miralax) 119 gm DAILY PO Last administered on 01/19/17 08 :23; Admin Dose 119 GM; Start 01/19/17 at 09:00 Lubiprostone (Amitiza) 24 mcg BID PO Last administered on 01/23/17 21:39; Admin Dose 24 MCG; Start 01/19/17 at 09:00 Quetiapine Fumarate 50 mg 50 mg HS PO Last administered on 01/23/17 21:39; Admin Dose 50 MG; Start 01/19/17 at 21:00 Dextrose/Sodium Chloride (D5-1/2ns) 1,000 ml @ 50 mls/hr Q20H IV Last administered on 01/23/17 21:33; Admin Dose 50 MLS/HR; Start 01/19/17 at 12:00 Insulin Glargine (Lantus) 35 unit HS SC Last administered on 01/23/17 21:44; Admin Dose 35 UNIT; Start 01/19/17 at 23:47 Ondansetron HCl (Zofran Inj) 4 mg Q4H PRN IV NAUSEA AND/OR VOMITING Last administered on 01/23/17 12:07; Admin Dose 4 MG; Start 01/23/17 at 11:30 BRO WEAVER Jan 24, 2017 11:53
[2017-01-24 18:55] LABS: CREATININE 1.14 mg/dl (0.44-1.00)
[2017-01-24] MEDS: QUETIAPINE 25 MG TAB PO SCH (20:11)
[2017-01-24] MEDS: INSULIN GLARGINE [LANtus] 3 ML PEN SC SCH (20:16)
[2017-01-24] MEDS: ONDANSETRON 4 MG INJ IV PRN (22:01)
[2017-01-25] VITALS (12 sets, daily range): BP systolic 108–125; BP diastolic 51–65; PULSE 75–85; RESP 16–18
[2017-01-25] MEDS: ACCU-CHEK XX SCH (02:00)
[2017-01-25] MEDS: PANTOPRAZOLE (EC) 40 MG TAB PO SCH (05:29)
[2017-01-25] MEDS: DEXTROSE 5%-0.45% NACL 1,000 ML IV SCH (07:41)
[2017-01-25] MEDS: INSULIN ASPART [NOVOLOG] 3 ML PEN SC SCH ×4 (07:45→20:11)
--- NOTE | 2017-01-25 08:24 | DS ---
Date/Time of Note Date/Time of Note DATE: 01/28/17 TIME: 08:23 Discharge Summary Admission/Discharge Info Admit Date/Time Jan 17, 2017 at 18:01 Discharge Date/Time Discharge Diagnosis The patient is status post diabetic ketoacidosis,Diabetes mellitus, controlled Patient Condition: Stable Hospital Course Leidy is a 41-year-old female who was admitted to another hospital with diagnosis of diabetic ketoacidosis, UTI, dehydration. The patient also developed acute kidney injury, started on hemodialysis. The patient was intubated and successfully extubated and transferred to [facility] for further management. The patient has underlying psychiatric disorder also. The patient has a history of hypertension. The patient was seen by endocrinology for diabetes mellitus. 1. The patient is status post diabetic ketoacidosis, 2.Diabetes mellitus, controlled 3. Hypertension, pneumonia, 4. status post respiratory failure. 5. ESRD, 6. obesity, 7.dyslipidemia, 8. noncompliance, 9. anxiety and depression pT WAS ON HOLD 5150 , 01/24/17 Hold was removed.Pt permacath was removed, last Hd was on 01/21/17 Home Meds Active Scripts Docusate Sodium* (Colace*) 100 Mg Capsule, 100 MG PO BID for CONSTIPATION, #60 CAP Prov:NAVI HSIEH MD 01/28/17 Ferrous Sulfate* (Ferrous Sulfate*) 325 Mg Tabec, 325 MG PO BID for 30 Days, TAB Prov:NAVI HSIEH MD 01/28/17 Paroxetine Hcl* (Paroxetine*) 10 Mg Tablet, 30 MG PO DAILY for 30 Days, TAB Prov:BRO WEAVER 01/25/17 Insulin Aspart* (Novolog Insulin Pen*) 100 Unit/Ml Soln, 0 UNIT SC WITH MEALS BEDTIME for 30 Days Prov:BRO WEAVER 01/25/17 Lubiprostone* (Amitiza*) 24 Mcg Capsule, 24 MCG PO BID for 30 Days, CAP Prov:BRO WEAVER 01/25/17 Insulin Glargine* (Lantus*) 100 Unit/Ml Soln, 35 UNIT SC HS for 30 Days Prov:BRO WEAVER 01/25/17 Reported Medications Metformin* (Glucophage*) 1,000 Mg Tablet, 1000 MG PO DAILY, #30 TAB 06/03/16 Discontinued Reported Medications Insulin Regular, Human (Humulin R) 100 Unit/1 Ml Vial, 25 UNIT IJ, VIAL 04/29/16 Insulin Glargine* (Lantus*) 100 Unit/Ml Soln, 55 UNIT SC DAILY, #1 VIAL 04/29/16 Follow-up Plan PCP 1 week Primary Care Provider Elen Johnson Time spent on discharge: < 30 minutes Pending Labs Laboratory Tests Test 01/24/17 12:02 01/24/17 17:29 01/24/17 18:22 01/24/17 20:09 Bedside Glucose 97mg/dL (70-220) 93mg/dL (70-220) 103mg/dL (70-220) Blood Urea Nitrogen 15mg/dl (7-20) Creatinine 1.14mg/dl (0.44-1.00) Test 01/25/17 04:37 01/25/17 07:43 Bedside Glucose 80mg/dL (70-220) 83mg/dL (70-220) BRO WEAVER Jan 25, 2017 08:24
--- NOTE | 2017-01-25 08:28 | PDOCDIS ---
Discharge Instructions DIAGNOSIS Discharge Diagnosis The patient is status post diabetic ketoacidosis,Diabetes mellitus, controlled CONDITION Patient Condition: Stable HOME CARE INSTRUCTIONS: Special Diet: Carb controlled ACTIVITY: Activity Restrictions: Slowly Increase Activity FOLLOW UP/APPOINTMENTS Follow-up Plan PCP 1 week SCHOOL/WORK RELEASE May return to School/Work with: With Restrictions BRO WEAVER Jan 25, 2017 08:28
[2017-01-25] MEDS ORDERED: LUBI24CA7 PO (08:31)
[2017-01-25] MEDS ORDERED: LANT3I SC (08:31)
[2017-01-25] MEDS ORDERED: NOVO3I SC (08:31)
--- NOTE | 2017-01-25 08:33 | PN ---
Date/Time of Note Date/Time of Note DATE: 01/25/17 TIME: 08:32 Assessment/Plan VTE Prophylaxis VTE Prophylaxis Intervention: ambulation Lines/Catheters IV [facility]ter Type (from [facility]): permacath Urinary Cath still in place: No Assessment/Plan Chief Complaint/Hosp Course 1. The patient is status post diabetic ketoacidosis, 2.Diabetes mellitus, controlled 3. Hypertension, pneumonia, 4. status post respiratory failure. 5. ESRD, 6. obesity, 7.dyslipidemia, 8. noncompliance, 9. anxiety and depression pT WAS ON HOLD 5150 , 01/24/17 Hold was removed. Problems: Assessment/Plan 1. D/c tomorrow 2. Ok to have permacath Subjective 24 Hr Interval Summary Constitutional: no complaints Eyes: no complaints Gastrointestinal: no complaints Exam/Review of Systems Vital Signs Vitals Vital Signs Date Time Temp Pulse Resp B/P Pulse Ox O2 Delivery O2 Flow Rate FiO2 01/25/17 08:00 98.8 82 18 115/56 100 01/22/17 08:10 Nasal Cannula 2.0 Intake and Output 01/24/17 01/24/17 01/25/17 14:59 22:59 06:59 Intake Total 600 ml 1300 ml Output Total 100 ml Balance 600 ml 1200 ml Exam Constitutional: alert Eyes: nl conjunctiva ENMT: nl external ears & nose Respiratory: clear to auscultation Results Result Diagram: 01/21/17 0747 01/24/17 1822 Results 24 hrs Laboratory Tests Test 01/24/17 12:02 01/24/17 17:29 01/24/17 18:22 01/24/17 20:09 Bedside Glucose 97 93 103 Blood Urea Nitrogen 15 Creatinine 1.14 H Test 01/25/17 04:37 01/25/17 07:43 Bedside Glucose 80 83 Medications Medications Current Medications Acetaminophen (Tylenol Tab) 650 mg Q6H PRN PO PAIN AND OR ELEVATED TEMP Last administered on 01/24/17 22:49; Admin Dose 650 MG; Start 01/17/17 at 22:00 Diagnostic Test (Pha) (Accu-Chek) 1 ea 02 XX Last administered on 01/22/17 02: 21; Admin Dose 1 EA; Start 01/18/17 at 02:00 Baclofen (Lioresal) 10 mg TID PRN PO muscle pain Last administered on 08:54; Admin Dose 10 MG; Start 01/17/17 at 22:30 Tramadol HCl (Ultram) 50 mg TID PRN PO PAIN Last administered on 01/23/17 07: 53; Admin Dose 50 MG; Start 01/17/17 at 22:30 Paroxetine HCl (Paxil) 30 mg DAILY PO Last administered on 01/24/17 08:23; Admin Dose 30 MG; Start 01/18/17 at 09:00 Miscellaneous Information 1 ea NOTE XX ; Start 01/17/17 at 23:15 Glucose (Glutose) 15 gm Q15M PRN PO DECREASED GLUCOSE; Start 01/17/17 at 23:15 Glucose (Glutose) 22.5 gm Q15M PRN PO DECREASED GLUCOSE; Start 01/17/17 at 23: 15 Dextrose (D50w Syringe) 25 ml Q15M PRN IV DECREASED GLUCOSE Last administered on 01/20/17 07:54; Admin Dose 25 ML; Start 01/17/17 at 23:15 Dextrose (D50w Syringe) 50 ml Q15M PRN IV DECREASED GLUCOSE Last administered on 01/20/17 12:10; Admin Dose 50 ML; Start 01/17/17 at 23:15 Glucagon (Glucagen) 1 mg Q15M PRN IM DECREASED GLUCOSE; Start 01/17/17 at 23:15 Glucose (Glutose) 15 gm Q15M PRN BUCCAL DECREASED GLUCOSE; Start 01/17/17 at 23 :15 Lorazepam (Ativan) 1 mg Q6H PRN IV ANXIETY Last administered on 01/22/17 01:11 ; Admin Dose 1 MG; Start 01/18/17 at 04:16 Pantoprazole (Protonix Tab) 40 mg DAILY@06 PO Last administered on 01/25/17 05:29; Admin Dose 40 MG; Start 01/19/17 at 06:00 Lorazepam (Ativan) 1 mg Q4 PRN IV ANXIETY Last administered on 01/19/17 15:50 ; Admin Dose 1 MG; Start 01/19/17 at 03:30 Polyethylene Glycol (Miralax) 119 gm DAILY PO Last administered on 01/19/17 08 :23; Admin Dose 119 GM; Start 01/19/17 at 09:00 Lubiprostone (Amitiza) 24 mcg BID PO Last administered on 01/24/17 20:10; Admin Dose 24 MCG; Start 01/19/17 at 09:00 Quetiapine Fumarate 50 mg 50 mg HS PO Last administered on 01/24/17 20:11; Admin Dose 50 MG; Start 01/19/17 at 21:00 Dextrose/Sodium Chloride (D5-1/2ns) 1,000 ml @ 50 mls/hr Q20H IV Last administered on 01/25/17 07:41; Admin Dose 50 MLS/HR; Start 01/19/17 at 12:00 Insulin Glargine (Lantus) 35 unit HS SC Last administered on 01/24/17 20:16; Admin Dose 35 UNIT; Start 01/19/17 at 23:47 Ondansetron HCl (Zofran Inj) 4 mg Q4H PRN IV NAUSEA AND/OR VOMITING Last administered on 01/24/17 22:01; Admin Dose 4 MG; Start 01/23/17 at 11:30 BRO WEAVER Jan 25, 2017 08:33
[2017-01-25] MEDS ORDERED: PARO10TA76 PO (08:35)
[2017-01-25] MEDS: LUBIPROSTONE 24 MCG CAP PO SCH ×2 (09:00→20:08)
[2017-01-25] MEDS: POLYETHYLENE GLYCOL 3350 119 GM POWDER PO SCH (09:00)
[2017-01-25] MEDS: PAROXETINE 10 MG TAB PO SCH (09:09)
[2017-01-25] MEDS: ACETAMINOPHEN 325 MG TAB PO PRN (13:27)
[2017-01-25] MEDS ORDERED: BUMETANIDE 1 MG INJ IV SCH (18:00)
[2017-01-25] MEDS: BUMETANIDE 1 MG INJ IV SCH (20:08)
[2017-01-25] MEDS: QUETIAPINE 25 MG TAB PO SCH (20:08)
[2017-01-25] MEDS: INSULIN GLARGINE [LANtus] 3 ML PEN SC SCH (20:10)
[2017-01-25 20:32] LABS: COLLECTION PERIOD 24 hrs
[2017-01-25 21:23] LABS: URINE POTASSIUM 12.8 mmol/l
[2017-01-25 22:23] LABS: 24 HR POTASSIUM VOLUME 1100 mls
[2017-01-26] VITALS (11 sets, daily range): BP systolic 97–132; BP diastolic 60–83; PULSE 74–117; RESP 17–20
[2017-01-26] MEDS: ACCU-CHEK XX SCH (02:00)
[2017-01-26] MEDS: DEXTROSE 5%-0.45% NACL 1,000 ML IV SCH (04:00)
[2017-01-26] MEDS: BUMETANIDE 1 MG INJ IV SCH (05:33)
[2017-01-26] MEDS: PANTOPRAZOLE (EC) 40 MG TAB PO SCH (05:33)
[2017-01-26] MEDS: INSULIN ASPART [NOVOLOG] 3 ML PEN SC SCH ×4 (08:00→20:48)
[2017-01-26] MEDS: LUBIPROSTONE 24 MCG CAP PO SCH ×2 (09:00→20:48)
[2017-01-26] MEDS: PAROXETINE 10 MG TAB PO SCH (09:01)
[2017-01-26] MEDS: POLYETHYLENE GLYCOL 3350 119 GM POWDER PO SCH (09:01)
--- NOTE | 2017-01-26 14:42 | PN ---
Date/Time of Note Date/Time of Note DATE: 01/26/17 TIME: 14:42 Assessment/Plan VTE Prophylaxis VTE Prophylaxis Intervention: contraindicated Lines/Catheters IV Catheter Type (from Nrs): Permacath Urinary Cath still in place: No Assessment/Plan Chief Complaint/Hosp Course 1 The patient is status post diabetic ketoacidosis, 2.Diabetes mellitus, controlled 3. Hypertension, pneumonia, 4. status post respiratory failure. 5. Acute renal failure on HD last HD was on 01/21 6. obesity, 7.dyslipidemia, 8. noncompliance, 9. anxiety and depression Plan - Labs today - 2 4hr urine collection for Cr Clearence( spoke to lab) - Strict i and o - Likely will not need HD, will remove permacath based on Cr cl and uop - c/w meds Problems: Subjective 24 Hr Interval Summary Free Text/Dictation Denies any complains UOP not documented right Denies any sob Exam/Review of Systems Vital Signs Vitals Vital Signs Date Time Temp Pulse Resp B/P Pulse Ox O2 Delivery O2 Flow Rate FiO2 01/26/17 12:19 93 01/26/17 11:34 98.2 17 124/61 98 01/22/17 08:10 Nasal Cannula 2.0 Intake and Output 01/25/17 01/25/17 01/26/17 14:59 22:59 06:59 Intake Total 400 ml 400 ml Balance 400 ml 400 ml Exam Constitutional: alert Eyes: nl conjunctiva ENMT: nl external ears & nose Respiratory: clear to auscultation Results Result Diagram: 01/24/17 182 Results 24 hrs Laboratory Tests Test 01/25/17 17:04 01/25/17 20:00 01/25/17 20:07 01/26/17 02:46 Bedside Glucose 87 85 78 Urine Collection Duration 24 Urine Total Volume (Protein) 1100 Urine Total Protein 24 Hour 374.0 H Urine Total Volume (Sodium) 1100 Urine Sodium 24 Hour Urine Total Volume (Potassium) 1100 Urine Potassium 24 Hour 14.1 L Urine Potassium Timed 24 Urine Chloride mEq/hr Pending Test 01/26/17 08:18 01/26/17 11:54 Bedside Glucose 70 89 Medications Medications Current Medications Acetaminophen (Tylenol Tab) 650 mg Q6H PRN PO PAIN AND OR ELEVATED TEMP Last administered on 01/25/17t 13:27; Admin Dose 650 MG; Start 01/17/17 at 22:00 Diagnostic Test (Pha) (Accu-Chek) 1 ea 02 XX Last administered on 01/22/17 02: 21; Admin Dose 1 EA; Start 01/18/17 at 02:00 Baclofen (Lioresal) 10 mg TID PRN PO muscle pain Last administered on 08:54; Admin Dose 10 MG; Start 01/17/17 at 22:30 Tramadol HCl (Ultram) 50 mg TID PRN PO PAIN Last administered on 01/23/17 07: 53; Admin Dose 50 MG; Start 01/17/17 at 22:30 Paroxetine HCl (Paxil) 30 mg DAILY PO Last administered on 01/26/17 09:01; Admin Dose 30 MG; Start 01/18/17 at 09:00 Miscellaneous Information 1 ea NOTE XX ; Start 01/17/17 at 23:15 Glucose (Glutose) 15 gm Q15M PRN PO DECREASED GLUCOSE; Start 01/17/17 at 23:15 Glucose (Glutose) 22.5 gm Q15M PRN PO DECREASED GLUCOSE; Start 01/17/17 at 23: 15 Dextrose (D50w Syringe) 25 ml Q15M PRN IV DECREASED GLUCOSE Last administered on 01/20/17 07:54; Admin Dose 25 ML; Start 01/17/17 at 23:15 Dextrose (D50w Syringe) 50 ml Q15M PRN IV DECREASED GLUCOSE Last administered on 01/20/17 12:10; Admin Dose 50 ML; Start 01/17/17 at 23:15 Glucagon (Glucagen) 1 mg Q15M PRN IM DECREASED GLUCOSE; Start 01/17/17 at 23:15 Glucose (Glutose) 15 gm Q15M PRN BUCCAL DECREASED GLUCOSE; Start 01/17/17 at 23 :15 Lorazepam (Ativan) 1 mg Q6H PRN IV ANXIETY Last administered on 01/22/17 01:11 ; Admin Dose 1 MG; Start 01/18/17 at 04:16 Pantoprazole (Protonix Tab) 40 mg DAILY@06 PO Last administered on 01/26/17 05:33; Admin Dose 40 MG; Start 01/19/17 at 06:00 Lorazepam (Ativan) 1 mg Q4 PRN IV ANXIETY Last administered on 01/19/17 15:50 ; Admin Dose 1 MG; Start 01/19/17 at 03:30 Polyethylene Glycol (Miralax) 119 gm DAILY PO Last administered on 01/26/17 09:01; Admin Dose 119 GM; Start 01/19/17 at 09:00 Lubiprostone (Amitiza) 24 mcg BID PO Last administered on 01/26/17 09:00; Admin Dose 24 MCG; Start 01/19/17 at 09:00 Quetiapine Fumarate (Seroquel) 50 mg HS PO Last administered on 01/25/17 20: 08; Admin Dose 50 MG; Start 01/19/17 at 21:00 Insulin Glargine (Lantus) 35 unit HS SC Last administered on 01/25/17 20:10; Admin Dose 35 UNIT; Start 01/19/17 at 23:47 Ondansetron HCl (Zofran Inj) 4 mg Q4H PRN IV NAUSEA AND/OR VOMITING Last administered on 01/24/17 22:01; Admin Dose 4 MG; Start 01/23/17 at 11:30 NAVI HSIEH MD Jan 26, 2017 14:42
[2017-01-26 15:21] LABS: CALCIUM 7.8 mg/dl (8.4-10.2); CREATININE 1.05 mg/dl (0.44-1.00); POTASSIUM 3.3 mmol/L (3.5-5.1)
[2017-01-26] MEDS ORDERED: POTASSIUM CHLORIDE (SR) 20 MEQ TAB PO STA (16:08)
[2017-01-26 16:55] LABS: IRON 28 ug/dl (35-150)
[2017-01-26 17:04] LABS: TOTAL IRON BINDING CAPACITY 345 ug/dl (241-421)
[2017-01-26] MEDS: INSULIN GLARGINE [LANtus] 3 ML PEN SC SCH (20:48)
[2017-01-26] MEDS: QUETIAPINE 25 MG TAB PO SCH (20:48)
[2017-01-26] MEDS: traMADol 50 MG TAB PO PRN (20:53)
[2017-01-27] VITALS (14 sets, daily range): BP systolic 103–137; BP diastolic 58–88; PULSE 86–150; RESP 18–20
[2017-01-27] MEDS: ACCU-CHEK XX SCH (02:00)
[2017-01-27] MEDS: PANTOPRAZOLE (EC) 40 MG TAB PO SCH (05:28)
[2017-01-27] MEDS: INSULIN ASPART [NOVOLOG] 3 ML PEN SC SCH ×4 (08:00→20:35)
[2017-01-27] MEDS: LUBIPROSTONE 24 MCG CAP PO SCH ×2 (09:00→20:36)
[2017-01-27] MEDS: POLYETHYLENE GLYCOL 3350 119 GM POWDER PO SCH (09:00)
[2017-01-27] MEDS: PAROXETINE 10 MG TAB PO SCH (09:06)
[2017-01-27] MEDS: FUROSEMIDE 40 MG TAB GTB SCH (09:06)
[2017-01-27] MEDS: traMADol 50 MG TAB PO PRN (12:01)
[2017-01-27 14:25] LABS: BASOPHILS % 0.4 % (0.0-2.0); HEMATOCRIT 27.3 % (37.0-47.0); HEMOGLOBIN 8.4 g/dl (12.0-16.0); LYMPHOCYTES # 1.3 10^3/ul (0.8-2.9); LYMPHOCYTES % 27.7 % (15.0-51.0); MEAN CORPUSCULAR HEMOGLOBIN 23.3 pg (29.0-33.0); MEAN CORPUSCULAR HGB CONC 30.8 g/dl (32.0-37.0); MEAN CORPUSCULAR VOLUME 75.6 fl (82.0-101.0); MEAN PLATELET VOLUME 8.8 fl (7.4-10.4); MONOCYTE # 0.4 10^3/ul (0.3-0.9); MONOCYTES % 8.9 % (0.0-11.0); NEUTROPHIL # 2.9 10^3/ul (1.6-7.5); NEUTROPHILS % 62.6 % (39.0-77.0); PLATELET COUNT 261 10^3/UL (140-415); RED BLOOD COUNT 3.61 10^6/ul (4.20-5.40); RED CELL DISTRIBUTION WIDTH 19.5 % (11.5-14.5); WHITE BLOOD COUNT 4.6 10^3/ul (4.8-10.8)
[2017-01-27 14:35] LABS: INR 1.17; PT RATIO 1.2
[2017-01-27 14:57] LABS: CREATININE 1.06 mg/dl (0.44-1.00); POTASSIUM 3.4 mmol/L (3.5-5.1)
[2017-01-27] MEDS ORDERED: POTASSIUM CHLORIDE (SR) 20 MEQ TAB PO STA (15:18)
--- NOTE | 2017-01-27 16:13 | PN ---
Date/Time of Note Date/Time of Note DATE: 01/27/17 TIME: 16:12 Assessment/Plan VTE Prophylaxis VTE Prophylaxis Intervention: other Lines/Catheters [facility] permacath Urinary Cath still in place: No Assessment/Plan Chief Complaint/Hosp Course 1 The patient is status post diabetic ketoacidosis, 2.Diabetes mellitus, controlled 3. Hypertension, pneumonia, 4. status post respiratory failure. 5. Acute renal failure on HD last HD was on 01/21 6. obesity, 7.dyslipidemia, 8. noncompliance, 9. anxiety and depression Plan - Labs today with improved Cr - UOP 500 documented in afternoon - dc permacath and HD - Strict i and o - PO Fe for Fe def anemia - c/w meds Problems: Subjective 24 Hr Interval Summary Free Text/Dictation uop 500 documented this afternoon No sob/ ble edema Exam/Review of Systems Vital Signs Vitals Vital Signs Date Time Temp Pulse Resp B/P Pulse Ox O2 Delivery O2 Flow Rate FiO2 01/27/17 15:53 98.0 112 18 116/60 100 Intake and Output 01/26/17 01/26/17 01/27/17 15:00 23:00 07:00 Intake Total 600 ml 500 ml Output Total 300 ml 0 ml Balance 300 ml 500 ml Exam Constitutional: alert Eyes: nl conjunctiva ENMT: nl external ears & nose Respiratory: clear to auscultation Results Result Diagram: 01/27/17 1355 01/27/17 1425 Results 24 hrs Laboratory Tests Test 01/26/17 17:20 01/26/17 20:47 01/27/17 08:39 01/27/17 12:04 Bedside Glucose 81 90 75 88 Test 01/27/17 13:55 01/27/17 14:25 White Blood Count 4.6 L Red Blood Count 3.61 L Hemoglobin 8.4 L Hematocrit 27.3 L Mean Corpuscular Volume 75.6 L Mean Corpuscular Hemoglobin 23.3 L Mean Corpuscular Hemoglobin Concent 30.8 L Red Cell Distribution Width 19.5 H Platelet Count 261 # Mean Platelet Volume 8.8 Neutrophils % 62.6 Lymphocytes % 27.7 Monocytes % 8.9 Eosinophils % 0.0 Basophils % 0.4 Nucleated Red Blood Cells % 0.0 Neutrophils # 2.9 Lymphocytes # 1.3 Monocytes # 0.4 Eosinophils # 0.0 Basophils # 0.0 Nucleated Red Blood Cells # 0.0 Prothrombin Time 15.0 H Prothrombin Time Ratio 1.2 INR International Normalized Ratio 1.17 Sodium Level 140 Potassium Level 3.4 L Chloride Level 106 Carbon Dioxide Level 21 Anion Gap 16 Blood Urea Nitrogen 11 Creatinine 1.06 H Glucose Level 87 Calcium Level 8.0 L Medications Medications Current Medications Acetaminophen (Tylenol Tab) 650 mg Q6H PRN PO PAIN AND OR ELEVATED TEMP Last administered on 01/25/17 13:27; Admin Dose 650 MG; Start 01/17/17 at 22:00 Diagnostic Test (Pha) (Accu-Chek) 1 ea 02 XX Last administered on 01/22/17 02: 21; Admin Dose 1 EA; Start 01/18/17 at 02:00 Baclofen (Lioresal) 10 mg TID PRN PO muscle pain Last administered on 08:54; Admin Dose 10 MG; Start 01/17/17 at 22:30 Tramadol HCl (Ultram) 50 mg TID PRN PO PAIN Last administered on 01/27/17 12: 01; Admin Dose 50 MG; Start 01/17/17 at 22:30 Paroxetine HCl (Paxil) 30 mg DAILY PO Last administered on 01/27/17 09:06; Admin Dose 30 MG; Start 01/18/17 at 09:00 Miscellaneous Information 1 ea NOTE XX ; Start 01/17/17 at 23:15 Glucose (Glutose) 15 gm Q15M PRN PO DECREASED GLUCOSE; Start 01/17/17 at 23:15 Glucose (Glutose) 22.5 gm Q15M PRN PO DECREASED GLUCOSE; Start 01/17/17 at 23: 15 Dextrose (D50w Syringe) 25 ml Q15M PRN IV DECREASED GLUCOSE Last administered on 01/20/17 07:54; Admin Dose 25 ML; Start 01/17/17 at 23:15 Dextrose (D50w Syringe) 50 ml Q15M PRN IV DECREASED GLUCOSE Last administered on 01/20/17 12:10; Admin Dose 50 ML; Start 01/17/17 at 23:15 Glucagon (Glucagen) 1 mg Q15M PRN IM DECREASED GLUCOSE; Start 01/17/17 at 23:15 Glucose (Glutose) 15 gm Q15M PRN BUCCAL DECREASED GLUCOSE; Start 01/17/17 at 23 :15 Lorazepam (Ativan) 1 mg Q6H PRN IV ANXIETY Last administered on 01/22/17 01:11 ; Admin Dose 1 MG; Start 01/18/17 at 04:16 Pantoprazole (Protonix Tab) 40 mg DAILY@06 PO Last administered on 01/27/17 05:28; Admin Dose 40 MG; Start 01/19/17 at 06:00 Lorazepam (Ativan) 1 mg Q4 PRN IV ANXIETY Last administered on 01/19/17 15:50 ; Admin Dose 1 MG; Start 01/19/17 at 03:30 Polyethylene Glycol (Miralax) 119 gm DAILY PO Last administered on 01/26/17 09:01; Admin Dose 119 GM; Start 01/19/17 at 09:00 Lubiprostone (Amitiza) 24 mcg BID PO Last administered on 01/26/17 20:48; Admin Dose 24 MCG; Start 01/19/17 at 09:00 Quetiapine Fumarate (Seroquel) 50 mg HS PO Last administered on 01/26/17 20: 48; Admin Dose 50 MG; Start 01/19/17 at 21:00 Insulin Glargine (Lantus) 35 unit HS SC Last administered on 01/25/17 20:10; Admin Dose 35 UNIT; Start 01/19/17 at 23:47 Ondansetron HCl (Zofran Inj) 4 mg Q4H PRN IV NAUSEA AND/OR VOMITING Last administered on 01/24/17 22:01; Admin Dose 4 MG; Start 01/23/17 at 11:30 Furosemide (Lasix) 40 mg DAILY GTB Last administered on 01/27/17 09:06; Admin Dose 40 MG; Start 01/27/17 at 09:00 NAVI HSIEH MD Jan 27, 2017 16:13
[2017-01-27] MEDS: BACLOFEN 10 MG TAB PO PRN (18:24)
[2017-01-27] MEDS: QUETIAPINE 25 MG TAB PO SCH (20:28)
[2017-01-27] MEDS: FERROUS SULFATE (EC) 325 MG TAB PO SCH (20:28)
[2017-01-27] MEDS: INSULIN GLARGINE [LANtus] 3 ML PEN SC SCH (20:36)
[2017-01-28] VITALS: PULSE 87
[2017-01-28] MEDS: ACCU-CHEK XX SCH (02:00)
[2017-01-28 03:58] VITALS: BP 131/73; RESP 18
[2017-01-28 04:00] VITALS: PULSE 85
[2017-01-28] MEDS: PANTOPRAZOLE (EC) 40 MG TAB PO SCH (05:39)
[2017-01-28 07:38] VITALS: BP 133/63; RESP 18
[2017-01-28] MEDS: INSULIN ASPART [NOVOLOG] 3 ML PEN SC SCH ×2 (07:56→11:53)
[2017-01-28] MEDS: LUBIPROSTONE 24 MCG CAP PO SCH (07:57)
[2017-01-28] MEDS: POLYETHYLENE GLYCOL 3350 119 GM POWDER PO SCH (07:57)
[2017-01-28] MEDS: FUROSEMIDE 40 MG TAB GTB SCH (07:57)
[2017-01-28] MEDS: FERROUS SULFATE (EC) 325 MG TAB PO SCH (07:58)
[2017-01-28] MEDS: traMADol 50 MG TAB PO PRN (07:58)
[2017-01-28] MEDS: BACLOFEN 10 MG TAB PO PRN (07:58)
[2017-01-28] MEDS: PAROXETINE 10 MG TAB PO SCH (07:58)
[2017-01-28 08:25] LABS: CREATININE 1.02 mg/dl (0.44-1.00); POTASSIUM 4.1 mmol/L (3.5-5.1)
[2017-01-28 08:36] VITALS: PULSE 81
--- NOTE | 2017-01-28 08:42 | PN ---
Date/Time of Note Date/Time of Note DATE: 01/28/17 TIME: 08:41 Assessment/Plan VTE Prophylaxis VTE Prophylaxis Intervention: ambulation, other Lines/Catheters IV [facility]from [facility] PERMACATH Urinary Cath still in place: No Assessment/Plan Chief Complaint/Hosp Course 1 The patient is status post diabetic ketoacidosis, 2.Diabetes mellitus, controlled 3. Hypertension, pneumonia, 4. status post respiratory failure. 5. Acute renal failure on HD last HD was on 01/21 6. obesity, 7.dyslipidemia, 8. noncompliance, 9. anxiety and depression Plan - Dc home today after permacath removal Problems: Subjective 24 Hr Interval Summary Free Text/Dictation Pt feeling a lot better Permacath will be removed today Good UOP Exam/Review of Systems Vital Signs Vitals Vital Signs Date Time Temp Pulse Resp B/P Pulse Ox O2 Delivery O2 Flow Rate FiO2 01/28/17 08:36 81 01/28/17 07:38 98.2 18 133/63 98 Intake and Output 01/27/17 01/27/17 01/28/17 15:00 23:00 07:00 Intake Total 500 ml 500 ml Output Total 500 ml Balance 0 ml 500 ml Exam Constitutional: alert Eyes: nl conjunctiva ENMT: nl external ears & nose Respiratory: clear to auscultation Results Result Diagram: 01/27/17 1355 01/28/17 0647 Results 24 hrs Laboratory Tests Test 01/27/17 12:04 01/27/17 13:55 01/27/17 14:25 01/27/17 17:28 Bedside Glucose 88 83 White Blood Count 4.6 L Red Blood Count 3.61 L Hemoglobin 8.4 L Hematocrit 27.3 L Mean Corpuscular Volume 75.6 L Mean Corpuscular Hemoglobin 23.3 L Mean Corpuscular Hemoglobin Concent 30.8 L Red Cell Distribution Width 19.5 H Platelet Count 261 # Mean Platelet Volume 8.8 Neutrophils % 62.6 Lymphocytes % 27.7 Monocytes % 8.9 Eosinophils % 0.0 Basophils % 0.4 Nucleated Red Blood Cells % 0.0 Neutrophils # 2.9 Lymphocytes # 1.3 Monocytes # 0.4 Eosinophils # 0.0 Basophils # 0.0 Nucleated Red Blood Cells # 0.0 Prothrombin Time 15.0 H Prothrombin Time Ratio 1.2 INR International Normalized Ratio 1.17 Sodium Level 140 Potassium Level 3.4 L Chloride Level 106 Carbon Dioxide Level 21 Anion Gap 16 Blood Urea Nitrogen 11 Creatinine 1.06 H Glucose Level 87 Calcium Level 8.0 L Test 01/27/17 20:31 01/28/17 03:31 01/28/17 06:47 01/28/17 07:42 Bedside Glucose 197 78 110 Sodium Level 141 Potassium Level 4.1 Chloride Level 107 Carbon Dioxide Level 24 Anion Gap 14 Blood Urea Nitrogen 12 Creatinine 1.02 H Glucose Level 89 Calcium Level 8.0 L Medications Medications Current Medications Acetaminophen (Tylenol Tab) 650 mg Q6H PRN PO PAIN AND OR ELEVATED TEMP Last administered on 01/25/17 13:27; Admin Dose 650 MG; Start 01/17/17 at 22:00 Diagnostic Test (Pha) (Accu-Chek) 1 ea 02 XX Last administered on 01/22/17 02: 21; Admin Dose 1 EA; Start 01/18/17 at 02:00 Baclofen (Lioresal) 10 mg TID PRN PO muscle pain Last administered on 07:58; Admin Dose 10 MG; Start 01/17/17 at 22:30 Tramadol HCl (Ultram) 50 mg TID PRN PO PAIN Last administered on 01/28/17 07: 58; Admin Dose 50 MG; Start 01/17/17 at 22:30 Paroxetine HCl (Paxil) 30 mg DAILY PO Last administered on 01/28/17 07:58; Admin Dose 30 MG; Start 01/18/17 at 09:00 Miscellaneous Information 1 ea NOTE XX ; Start 01/17/17 at 23:15 Glucose (Glutose) 15 gm Q15M PRN PO DECREASED GLUCOSE; Start 01/17/17 at 23:15 Glucose (Glutose) 22.5 gm Q15M PRN PO DECREASED GLUCOSE; Start 01/17/17 at 23: 15 Dextrose (D50w Syringe) 25 ml Q15M PRN IV DECREASED GLUCOSE Last administered on 01/20/17 07:54; Admin Dose 25 ML; Start 01/17/17 at 23:15 Dextrose (D50w Syringe) 50 ml Q15M PRN IV DECREASED GLUCOSE Last administered on 01/20/17 12:10; Admin Dose 50 ML; Start 01/17/17 at 23:15 Glucagon (Glucagen) 1 mg Q15M PRN IM DECREASED GLUCOSE; Start 01/17/17 at 23:15 Glucose (Glutose) 15 gm Q15M PRN BUCCAL DECREASED GLUCOSE; Start 01/17/17 at 23 :15 Lorazepam (Ativan) 1 mg Q6H PRN IV ANXIETY Last administered on 01/22/17 01:11 ; Admin Dose 1 MG; Start 01/18/17 at 04:16 Pantoprazole (Protonix Tab) 40 mg DAILY@06 PO Last administered on 01/28/17 05:39; Admin Dose 40 MG; Start 01/19/17 at 06:00 Lorazepam (Ativan) 1 mg Q4 PRN IV ANXIETY Last administered on 01/19/17 15:50 ; Admin Dose 1 MG; Start 01/19/17 at 03:30 Polyethylene Glycol (Miralax) 119 gm DAILY PO Last administered on 01/26/17 09:01; Admin Dose 119 GM; Start 01/19/17 at 09:00 Lubiprostone (Amitiza) 24 mcg BID PO Last administered on 01/28/17 07:57; Admin Dose 24 MCG; Start 01/19/17 at 09:00 Quetiapine Fumarate (Seroquel) 50 mg HS PO Last administered on 01/27/17 20: 28; Admin Dose 50 MG; Start 01/19/17 at 21:00 Insulin Glargine (Lantus) 35 unit HS SC Last administered on 01/27/17 20:36; Admin Dose 35 UNIT; Start 01/19/17 at 23:47 Ondansetron HCl (Zofran Inj) 4 mg Q4H PRN IV NAUSEA AND/OR VOMITING Last administered on 01/24/17 22:01; Admin Dose 4 MG; Start 01/23/17 at 11:30 Furosemide (Lasix) 40 mg DAILY GTB Last administered on 01/28/17 07:57; Admin Dose 40 MG; Start 01/27/17 at 09:00 Ferrous Sulfate (Ferrous Sulfate (Ec)) 325 mg BID PO Last administered on 01/28 07:58; Admin Dose 325 MG; Start 01/27/17 at 21:00 NAVI HSIEH MD Jan 28, 2017 08:42
--- NOTE | 2017-01-28 08:44 | PDOCDIS ---
Discharge Instructions DIAGNOSIS Discharge Diagnosis The patient is status post diabetic ketoacidosis,Diabetes mellitus, controlled CONDITION Patient Condition: Good HOME CARE INSTRUCTIONS: Special Diet: carb controlled ACTIVITY: Activity Restrictions: Slowly Increase Activity FOLLOW UP/APPOINTMENTS Follow-up Plan PCP 1 week Off hemodilaysis SCHOOL/WORK RELEASE May return to School/Work with: With Restrictions NAVI HSIEH MD Jan 28, 2017 08:44
[2017-01-28] MEDS: ONDANSETRON 4 MG INJ IV PRN (08:45)
[2017-01-28] MEDS ORDERED: FER325 PO (08:46)
[2017-01-28] MEDS ORDERED: DOCU-144 PO (08:49)
[2017-01-28] MEDS ORDERED: LIDOCAINE 1% (MDV) 20 ML INJ ONE (10:51)
[2017-01-28 12:20] VITALS: PULSE 100
--- NOTE | 2017-01-28 13:12 | RADRPT ---
PROCEDURE: Right internal jugular vein tunneled hemodialysis catheter removal. CLINICAL INDICATION: Right internal jugular vein tunneled dialysis catheter no longer required. TECHNIQUE: INTRAPROCEDURE MEDICATIONS: 1% lidocaine subcutaneous. The procedure, risks, benefits, complications and alternatives were explained to the patient. Consen t was obtained. A procedural pause was performed prior to the procedure. The patient's name, date of , and procedure to be performed were verified. The right anterior chest wall was prepped and draped. One percent lidocaine was used as local anesth esia at the site of the dialysis catheter. Fluoroscopic guidance was used. A 1 cm incision was made utilizing a 11 blade scalpel. Utilizing blunt dissection the tunneled catheter was mobilized. The catheter was then removed. Pressure was applied to the region of the internal jugular vein and the c hest wall at the site of the catheter until adequate hemostasis was obtained. A dressing was applie d. The patient tolerated procedure well. 0.1 minutes of fluoroscopy time was used. COMPARISON: None. FINDINGS: Successful removal of tunneled dialysis catheter. Preoperative image demonstrates the tunneled dialy sis catheter in position. Postoperative image demonstrates successful removal of the dialysis kiara ter. 2 images of the chest were obtained with image intensifier. The removed catheter was sent for pathology analysis. IMPRESSION: 1. Successful removal of right internal jugular vein tunneled dialysis catheter. RPTAT: QQ .Joel Hutchison MD, Date Time Electronically viewed and signed by .Joel Hutchison MD, on 01/28/2017 13:12 .R/
--- NOTE | 2017-01-29 05:51 | DS ---
DATE OF ADMISSION: 01/17/2017 DATE OF DISCHARGE: 01/28/2017 ADDENDUM TO DISCHARGE SUMMARY Please see the discharge summary dictated on 01/25/2017. During the hospitalization course, the pat agapito's creatinine, kidney function recovered, creatinine came down to 1.06, 1.05. Urine output had improved about a liter to a liter and a half every day. The patient denies any shortness of breath. Electrolytes stable. No edema. Decision was made to remove the Perm catheter. Patient will be g oing home without dialysis. The patient was also found to be iron deficient and will be started on iron sulfate 325 b.i.d. DISCHARGE MEDICATIONS: 1. Colace 100 mg p.o. b.i.d. 2. Iron sulfate 325 p.o. b.i.d. 3. Insulin NovoLog pen sliding scale with meals. 4. Lantus 37 units at bedtime. 5. Amitiza 25 mcg p.o. b.i.d. 6. Paroxetine 30 mg p.o. daily. 7. Continue metformin 1000 mg p.o. every day. DISCHARGE INSTRUCTIONS: The patient was instructed to follow up with the PCP in about 1 week. Dictated By: NAVI DE LA ROSA/ABNER Conf#: [id number] DID#: [id number]
== END 2017-01-28 14:48 | disposition home or self-care (01) | DRG 682 ==
LOC: MS4 18:01
PROVIDERS: ADMIT Internal Medicine Nephrology; ATTEND Internal Medicine Nephrology
PROC: 5A1D70Z Performance of Urinary Filtration, Intermittent, Less than 6 Hours Per Day (ICD-10-PCS; principal; 2017-01-19)
PROC: 02HV33Z Insertion of Infusion Device into Superior Vena Cava, Percutaneous Approach (ICD-10-PCS; 2017-01-21)
DX: I12.0 Hypertensive chronic kidney disease with stage 5 chronic kidney disease or end stage renal disease (principal); G93.41 Metabolic encephalopathy; N17.9 Acute kidney failure, unspecified; N18.6 End stage renal disease; Z79.4 Long term (current) use of insulin; Z99.2 Dependence on renal dialysis; E66.9 Obesity, unspecified; Z68.38 Body mass index [BMI] 38.0-38.9, adult; E78.5 Hyperlipidemia, unspecified; Z91.19 Patient's noncompliance with other medical treatment and regimen; F41.8 Other specified anxiety disorders; R41.0 Disorientation, unspecified; E11.9 Type 2 diabetes mellitus without complications
CPT/HCPCS: 36590; 71010; 76942; 80048; 80053; 82436; 82565; 82947; 82962; 83036; 83540; 84133; 84156; 84300; 84520; 85025; 85610; 85730; 86704; 86709; 86803; 87081; 87340; 90935; 92526; 92610; 93970; 97003; 97110; 97116; 97163; 97166; 97530; 97535; J0690; J0696; J1644; J1815; J2060; J2250; J2370; J2405; J2997; J3010; J3480; J7040; J7042

== ENCOUNTER 2018-03-01 12:46 | Inpatient (IN) | END 2018-03-03 16:40 | disposition home or self-care (01) | DRG 638 ==